=== PATIENT | female | born 1975 | race Caucasian/White ===

== ENCOUNTER 2016-04-29 11:31 | Emergency (ER) | payer OTHER, SELFPAY ==
[~2016-04-29 11:31] MED LIST: /AMIT100TA PO; /CIPR75TA OR; /ESOM40CA OR; /ONDA4TA OR; ACET500C OR; ACET65TA OR; BENT20TA OR; CALC500T21 PO; CIPR500T4 OR; CIPR500T89 PO; COLA100C2 OR; COLA100C2 PO; DEPRO PROVERA SC; FLAG500T OR; FLAG500T PO; FLEX10TA2 PO; LYRI75CA PO; MAXA5TAB10 PO; NAPR500T2 PO; OMEP40CA2 PO; ROBA500T PO; TOPA50TA PO; ULTR50TA PO; VALI5TAB PO; VICO5TAB OR; VICO5TAB PO; VITA200015 PO; VOLT1GEL2 TD; [UNRECOGNIZED DRUG - OTHER] PO; dulcolax PO; invanz IV; metamucil PO; motrin PO; multivitamin PO; oxycodone PO; vicodin PO; voltaren TOP
--- NOTE | 2016-04-29 13:21 | REP ---
Clinical: Left lower quadrant pain. Comparison: 07/16/2015. Findings: Lung bases clear. Visualized heart and pericardium normal. Liver, spleen, pancreas, bilateral adrenal glands and kidneys are relatively normal for noncontrast evaluation. 2 mm nonobstructing left renal calculus identified without perinephric stranding or hydroureteronephrosis. Prior cholecystectomy. The enteric system is without obstruction or acute inflammatory process evidence for prior partial sigmoid resection and anastomoses. No evidence for acute diverticulitis. Pelvis demonstrates normal bladder and evidence for prior hysterectomy. No pelvic fluid/ascites. No adenopathy. No mass lesion. Abdominal aorta without aneurysm. Musculoskeletal structures intact. Impression: No acute intra-abdominal or pelvic pathology appreciated. 2 mm nonobstructing left nephrolith. Signed by James Cordero MD 04/29/2016 01:12 P
[2016-04-29 13:37] LABS: BASO # 0.1 K/mm3 (0.0-0.2); BASO % 1.3 % (0.0-1.0); EOS # 0.2 K/mm3 (0.0-0.50); EOS % 2.9 % (0.0-3.0); LARGE UNSTAINED CELL # 0.1 K/mm3 (0.0-0.4); LARGE UNSTAINED CELL % 1.6 % (0.0-4.0); LYMPH % 33.7 % (24.0-44.0); MEAN CORPUSCULAR HEMOGLOBIN 30.6 pg (27.0-33.0); MEAN CORPUSCULAR HGB CONC 33.4 g/dl (32.0-36.5); MEAN CORPUSCULAR VOLUME 91.4 fl (80.0-96.0); MONO # 0.3 K/mm3 (0.0-0.8); MONO % 4.7 % (0.0-5.0); NEUTROPHILS # 3.2 K/mm3 (1.8-7.7); NEUTROPHILS % 55.8 % (36.0-66.0); PLATELET COUNT, AUTOMATED 330 k/mm3 (150-450); RED CELL DISTRIBUTION WIDTH 12.1 % (11.5-14.5); WHITE BLOOD COUNT 5.7 K/mm3 (4.0-10.0)
[2016-04-29 13:46] LABS: ALBUMIN 4.2 GM/DL (3.2-5.2); ALBUMIN/GLOBULIN RATIO 1.17 (1.00-1.93); ALKALINE PHOSPHATASE 103 U/L (45-117); ALT/SGPT 21 U/L (12-78); AMYLASE 42 U/L (25-115); ANION GAP 10 MEQ/L (8-16); AST/SGOT 15 U/L (15-37); BILIRUBIN,DIRECT 0.2 MG/DL (0.0-0.2); BILIRUBIN,TOTAL 0.7 MG/DL (0.2-1.0); BLOOD UREA NITROGEN 17 MG/DL (7-18); CALCIUM LEVEL 9.2 MG/DL (8.5-10.1); CARBON DIOXIDE LEVEL 24 MEQ/L (21-32); CHLORIDE LEVEL 108 MEQ/L (98-107); CREATININE FOR GFR 1.05 MG/DL (0.55-1.02); GLOMERULAR FILTRATION RATE > 60.0 (>58); GLUCOSE, FASTING 95 MG/DL (70-105); POTASSIUM SERUM 3.8 MEQ/L (3.5-5.1); SODIUM LEVEL 142 MEQ/L (136-145); TOTAL PROTEIN 7.8 GM/DL (6.4-8.2)
--- NOTE | 2016-04-29 14:57 | EDDOCDS ---
Nurse's Notes [facility] Name: Shalonda Rasmussen Age: 41 yrs Sex: Female : 1975 Arrival Date: 04/29/2016 Time: 11:31 Bed TR1 Private MD: Urbano Currie MBBS Diagnosis: Left lower quadrant abdominal tenderness Presentation: 04/29 11:37 Presenting complaint: Patient states: woke up with fever and stomach cramps- temp 104. srm no urinary difficulties. sometimes when eats nausea and diarrhea. diarrhea for a week. Risk factors: the patient reports no vaginal bleeding. Adult Sepsis Screening: The patient does not have new or worsening altered mentation. Patient's respiratory rate is less than 22. Systolic blood pressure is greater than 100. Patient has a qSOFA score of 0- Negative Sepsis Screen. Suicide/Homicide risk assessment- the patient denies having any suicidal and/or homicidal ideations and does not present with any other emotional, behavioral or mental health complaints. Status: Patient is not a insurance customer service specialist or dependent. Transition of care: patient was not received from another setting of care. 11:37 Acuity: MANDIE Level 3 srm 11:37 Method Of Arrival: Walkin/Carried/Asstd srm Triage Assessment: 11:40 General: Appears in no apparent distress, Behavior is appropriate for age, cooperative. srm Pain: Pain currently is 7 out of 10 on a pain scale. HIV screening NA for this visit Offered previously. GI: Reports cramping, diarrhea, nausea. MANAGER TRANSITION: 11:40 LMP N/A - Hysterectomy srm Historical: - Allergies: no known allergies; - Home Meds: 1. Topamax 50 mg oral tab nightly 2. amitriptyline 100 mg oral tab nightly 3. omeprazole 40 mg Oral cpDR 1 cap 2 times per day 4. Colace 100 mg oral cap 1 cap up to 4 times a day prn 5. Maxalt 10 mg oral tab 1 tab as needed 6. naproxen 500 mg Oral TbEC 1 tab 2 times per day prn (Last dose: 04/29/2016 07:30) 7. Vitamin D Oral 50,000 unit weekly - PMHx: Colitis; Diverticulitis; GERD; Migraine Headaches; - PSHx: Colon Resection; Hysterectomy; Cholecystectomy; Hernia repair; mesh implant to umbilicus; Oophorectomy- bilateral; - Social history: Smoking status: Patient states was never smoker of tobacco. No barriers to communication noted, The patient speaks fluent Japanese, Speaks appropriately for age. - Family history: Not pertinent. - : The pt / caregiver states he / she is not on anticoagulants. Home medication list is obtained from the patient. - Exposure Risk Screening:: None identified. Screenin:55 Screening information is obtained from the patient. Fall risk: No risks identified. bcj Assistance ADL's: requires no assistance with activities of daily living. Abuse/DV Screen: The patient / caregiver reports he/she is: not in a situation that causes fear, pain or injury. Nutritional screening: No deficits noted. Advance Directives: Currently, there is no health care proxy. home support is adequate. Assessment: 14:55 General: Appears in no apparent distress, comfortable, Behavior is cooperative. GI: bcj Abdomen is flat, non- distended Bowel sounds present X 4 quads. Abd is soft and non tender X 4 quads. Vital Signs: 11:33 BP 121 / 84; Pulse 70; Resp 19; Temp 96.6; Pulse Ox 100% ; Weight 92.08 kg; Height 5 jlm ft. 5 in. (165.10 cm); Pain 7/10; 11:33 Body Mass Index 33.78 (92.08 kg, 165.10 cm) [facility] Vitals: 11:33 Log In Time: April 29, 2016 at 11:33. [facility] ED Course: 11:32 Patient visited by Roxi Arredondo, Demand Manager. [facility] 11:32 Urbano Currie is Private Physician. [facility] 11:32 Patient moved to Waiting jl 11:36 Patient moved to Pre RCE jlm 11:38 Triage Initiated srm 12:05 Patient moved to Triage 1 srm 12:47 Edwin Chen PA is PHCP. btw 12:47 Kateryna Wheeler MD is Attending Physician. btw 12:47 Patient visited by Edwin Chen PA. btw 13:[address] je3 13:08 Patient moved to Triage 1 srm 13:17 Patient moved to TR1 bcj 13:17 Basic Metabolic Profile Sent. sew 13:17 Lipase Sent. sew 13:17 Liver Profile Sent. sew 13:19 Patient visited by Ashley Lange. sew 13:19 Labs drawn. (by ED staff). Sent per order to lab. Urine collected. Clean catch sew specimen. Urine specimen sent to lab. 13:38 AMYLASE Sent. sew 13:53 CT ABD & PELVIS W/O CONTRAST Returned. EDMS 13:55 Urbano Currie is Referral Physician. btw 13:59 [facility] Payment Agreement was scanned into [employer] and attached to record. lg 13:59 Patient moved to PR1 / 25 btw 14:37 Patient moved to TR1 [facility] 14:55 No apparent distress. Resting quietly. Awaiting disposition. bcj 14:55 The patient / caregiver is instructed regarding the plan of care and ED course. bcj 14:55 No IV's were initiated during this patient's visit. No procedures done that require bcj assistance. 14:57 Patient visited by Alessandro Moore RN. bcj Order Results: Lab Order: Basic Metabolic Profile; SPEC'M 04/29/16 13:17 Test: GLUCOSE, FASTING; Value: 95; Range: 70-105; Units: MG/DL; Status: F Test: BLOOD UREA NITROGEN; Value: 17; Range: 7-18; Units: MG/DL; Status: F Test: CREATININE FOR GFR; Value: 1.05; Range: 0.55-1.02; Abnormal: Above high normal; Units: MG/DL; Status: F Test: GLOMERULAR FILTRATION RATE; Value: > 60.0; Range: >58; Status: F Test: SODIUM LEVEL; Value: 142; Range: 136-145; Units: MEQ/L; Status: F Test: POTASSIUM SERUM; Value: 3.8; Range: 3.5-5.1; Units: MEQ/L; Status: F Test: CHLORIDE LEVEL; Value: 108; Range: 98-107; Abnormal: Above high normal; Units: MEQ/L; Status: F Test: CARBON DIOXIDE LEVEL; Value: 24; Range: 21-32; Units: MEQ/L; Status: F Test: ANION GAP; Value: 10; Range: 8-16; Units: MEQ/L; Status: F Test: CALCIUM LEVEL; Value: 9.2; Range: 8.5-10.1; Units: MG/DL; Status: F Test Note: ; Units are mL/min/1.73 m2 Chronic Kidney Disease Staging per NKF: Stage I & II GFR >=60 Normal to Mildly Decreased Stage III GFR 30-59 Moderately Decreased Stage IV GFR 15-29 Severely Decreased Stage V GFR <15 Very Little GFR Left ESRD GFR <15 on BIOLOGY TUTOR Lab Order: Lipase; [facility] 04/29/16 13:17 Test: LIPASE; Value: 105; Range: 73-393; Units: U/L; Status: F Lab Order: Liver Profile; [facility] 04/29/16 13:17 Test: AST/SGOT; Value: 15; Range: 15-37; Units: U/L; Status: F Test: ALT/SGPT; Value: 21; Range: 12-78; Units: U/L; Status: F Test: ALKALINE PHOSPHATASE; Value: 103; Range: 45-117; Units: U/L; Status: F Test: BILIRUBIN,TOTAL; Value: 0.7; Range: 0.2-1.0; Units: MG/DL; Status: F Test: BILIRUBIN,DIRECT; Value: 0.2; Range: 0.0-0.2; Units: MG/DL; Status: F Test: TOTAL PROTEIN; Value: 7.8; Range: 6.4-8.2; Units: GM/DL; Status: F Test: ALBUMIN; Value: 4.2; Range: 3.2-5.2; Units: GM/DL; Status: F Test: ALBUMIN/GLOBULIN RATIO; Value: 1.17; Range: 1.00-1.93; Status: F Lab Order: CBC WITH DIFFERENTIAL; [facility] 04/29/16 13:17 Test: WHITE BLOOD COUNT; Value: 5.7; Range: 4.0-10.0; Units: K/mm3; Status: F Test: RED BLOOD COUNT; Value: 4.86; Range: 4.00-5.40; Units: M/mm3; Status: F Test: HEMOGLOBIN; Value: 14.9; Range: 12.0-16.0; Units: g/dl; Status: F Test: HEMATOCRIT; Value: 44.5; Range: 36.0-47.0; Units: %; Status: F Test: MEAN CORPUSCULAR VOLUME; Value: 91.4; Range: 80.0-96.0; Units: fl; Status: F Test: MEAN CORPUSCULAR HEMOGLOBIN; Value: 30.6; Range: 27.0-33.0; Units: pg; Status: F Test: MEAN CORPUSCULAR HGB CONC; Value: 33.4; Range: 32.0-36.5; Units: g/dl; Status: F Test: RED CELL DISTRIBUTION WIDTH; Value: 12.1; Range: 11.5-14.5; Units: %; Status: F Test: PLATELET COUNT, AUTOMATED; Value: 330; Range: 150-450; Units: k/mm3; Status: F Test: NEUTROPHILS %; Value: 55.8; Range: 36.0-66.0; Units: %; Status: F Test: LYMPH %; Value: 33.7; Range: 24.0-44.0; Units: %; Status: F Test: MONO %; Value: 4.7; Range: 0.0-5.0; Units: %; Status: F Test: EOS %; Value: 2.9; Range: 0.0-3.0; Units: %; Status: F Test: BASO %; Value: 1.3; Range: 0.0-1.0; Abnormal: Above high normal; Units: %; Status: F Test: LARGE UNSTAINED CELL %; Value: 1.6; Range: 0.0-4.0; Units: %; Status: F Test: NEUTROPHILS #; Value: 3.2; Range: 1.8-7.7; Units: K/mm3; Status: F Test: LYMPH #; Value: 2.0; Range: 1.5-4.5; Units: K/mm3; Status: F Test: MONO #; Value: 0.3; Range: 0.0-0.8; Units: K/mm3; Status: F Test: EOS #; Value: 0.2; Range: 0.0-0.50; Units: K/mm3; Status: F Test: BASO #; Value: 0.1; Range: 0.0-0.2; Units: K/mm3; Status: F Test: LARGE UNSTAINED CELL #; Value: 0.1; Range: 0.0-0.4; Units: K/mm3; Status: F Lab Order: URINALYSIS; SPEC'M 04/29/16 13:17 Test: APPEARANCE, URINE; Value: HAZY; Range: CLEAR; Status: F Test: COLOR, URINE; Value: YELLOW; Range: YELLOW; Status: F Test: PH,URINE; Value: 5.0; Range: 5.0-9.0; Units: UNITS; Status: F Test: SPECIFIC GRAVITY URINE AUTO; Value: 1.021; Range: 1.002-1.035; Status: F Test: PROTEIN, URINE AUTO; Value: NEGATIVE; Range: NEGATIVE; Units: mg/dL; Status: F Test: GLUCOSE, URINE (UA) AUTO; Value: NEGATIVE; Range: NEGATIVE; Units: mg/dL; Status: F Test: KETONE, URINE AUTO; Value: NEGATIVE; Range: NEGATIVE; Units: mg/dL; Status: F Test: UROBILINOGEN, URINE AUTO; Value: 0.2; Range: 0.0-2.0; Units: mg/dL; Status: F Test: BILIRUBIN, URINE AUTO; Value: NEGATIVE; Range: NEGATIVE; Status: F Test: NITRITE, URINE AUTO; Value: NEGATIVE; Range: NEGATIVE; Status: F Test: LEUKOCYTE ESTERASE, URINE AUTO; Value: NEGATIVE; Range: NEGATIVE; Status: F Test: BLOOD, URINE BLOOD; Value: NEGATIVE; Range: NEGATIVE; Status: F Test: WBC, URINE AUTO; Value: 2; Range: 0-3; Units: /HPF; Status: F Test: RBC, URINE AUTO; Value: 2; Range: 0-3; Units: /HPF; Status: F Test: BACTERIA, URINE AUTO; Value: 1+; Range: NEGATIVE; Abnormal: Above high normal; Status: F Test: SQUAMOUS EPITHELIAL CELL UR AU; Value: 4; Range: 0-6; Units: /HPF; Status: F Test: MUCUS, URINE; Value: LARGE; Range: NEGATIVE; Status: F Test: HYALINE CAST, URINE AUTO; Value: 0; Range: 0-1; Units: /LPF; Status: F Lab Order: AMYLASE; SPEC'M 04/29/16 13:17 Test: AMYLASE; Value: 42; Range: 25-115; Units: U/L; Status: F Radiology Order: CT ABD & PELVIS W/O CONTRAST Test: CT ABD & PELVIS W/O CONTRAST REASON FOR EXAMINATION: DIVERTICULITIS/LLQ PAIN; Clinical: Left lower quadrant pain.; ; Comparison: 07/16/2015.; ; Findings:; Lung bases clear. Visualized heart and pericardium normal.; ; Liver, spleen, pancreas, bilateral adrenal glands and kidneys are relatively; normal for noncontrast evaluation. 2 mm nonobstructing left renal calculus; identified without perinephric stranding or hydroureteronephrosis. Prior; cholecystectomy. The enteric system is without obstruction or acute inflammatory; process evidence for prior partial sigmoid resection and anastomoses. No; evidence for acute diverticulitis. Pelvis demonstrates normal bladder and; evidence for prior hysterectomy. No pelvic fluid/ascites. No adenopathy. No; mass lesion. Abdominal aorta without aneurysm. Musculoskeletal structures; intact.; ; Impression:; No acute intra-abdominal or pelvic pathology appreciated.; 2 mm nonobstructing left nephrolith.; ; ; Signed by; James Cordero MD 04/29/2016 01:12 P; Outcome: 13:56 Discharge ordered by Provider. btw 14:56 Patient left the ED. [facility] Signatures: Dispatcher [employer] Alessandro Antoine, Andreina Hill RN, RN RN Samson Jackson, Reg Reg lg Japanese, Edwin Francisco PA PA w Samantha Elmore,RN RN jean Lange, Roxi Smyth, Demand Manager Unit [facility] Corrections: (The following items were deleted from the chart) 13:09 13:07 AMYLASE sent. sew EDMS 13:32 13:29 URINE CULTURE sent. sew EDMS 13:34 13:29 AMYLASE sent. sew EDMS 13:34 13:29 CBC WITH DIFFERENTIAL sent. sew EDMS 13:34 13:29 URINALYSIS sent. [facility] [place] EDMS MTDD
--- NOTE | 2016-04-29 14:57 | EDDOCDS ---
Physician Documentation [facility] Name: Shalonda Rasmussen Age: 41 yrs Sex: Female : 1975 Arrival Date: 04/29/2016 Time: 11:31 Bed TR1 Private MD: Urbano Currie MBBS Disposition: 04/29/16 13:56 Discharged to Home/Self Care. Impression: Left lower quadrant abdominal tenderness. - Condition is Stable. - Discharge Instructions: Abdominal Pain, Women. - Medication Reconciliation, Local Pharmacy Hours form. - Follow up: Urbano Currie; When: Call to arrange an appointment; Reason: Further diagnostic work-up, Recheck today's complaints, Continuance of care. - Problem is new. - Symptoms are unchanged. Historical: - Allergies: no known allergies; - Home Meds: 1. Topamax 50 mg oral tab nightly 2. amitriptyline 100 mg oral tab nightly 3. omeprazole 40 mg Oral cpDR 1 cap 2 times per day 4. Colace 100 mg oral cap 1 cap up to 4 times a day prn 5. Maxalt 10 mg oral tab 1 tab as needed 6. naproxen 500 mg Oral TbEC 1 tab 2 times per day prn (Last dose: 04/29/2016 07:30) 7. Vitamin D Oral 50,000 unit weekly - PMHx: Colitis; Diverticulitis; GERD; Migraine Headaches; - PSHx: Colon Resection; Hysterectomy; Cholecystectomy; Hernia repair; mesh implant to umbilicus; Oophorectomy- bilateral; - Social history: Smoking status: Patient states was never smoker of tobacco. No barriers to communication noted, The patient speaks fluent Surinamese, Speaks appropriately for age. - Family history: Not pertinent. - : The pt / caregiver states he / she is not on anticoagulants. Home medication list is obtained from the patient. - Exposure Risk Screening:: None identified. 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 5 in. (165.10 cm); Pain 7/10; 11:33 Body Mass Index 33.78 (92.08 kg, 165.10 cm) jlm MDM: 12:48 Financial registration complete. lg 13:03 CT ABD & PELVIS W/O CONTRAST Ordered. EDMS 13:03 NOTHING BY MOUTH+DIET ordered. EDMS 13:04 Basic Metabolic Profile Ordered. EDMS 13:04 Lipase Ordered. EDMS 13:04 Liver Profile Ordered. EDMS 13:34 AMYLASE Ordered. EDMS 13:53 Basic Metabolic Profile Reviewed. btw 13:53 CBC WITH DIFFERENTIAL Reviewed. btw 13:53 URINALYSIS Reviewed. btw 13:53 Lipase Reviewed. btw 13:53 Liver Profile Reviewed. btw 13:53 AMYLASE Reviewed. btw 13:53 CT ABD & PELVIS W/O CONTRAST Reviewed. btw 13:59 [facility] was scanned into [employer] and attached to record. lg Signatures: Dispatcher [employer] Alessandro Antoine RN RN bcj Michelson, Staci, RN RN srm Ganter, LoriLee, Juni Reg lg Edwin Chen PA PA btw The chart was reviewed and I authenticate all verbal orders and agree with the evaluation and treatment provided.Corrections: (The following items were deleted from the chart) 13:09 13:03 AMYLASE ordered. EDMS EDMS 13:09 13:03 BASIC METABOLIC PROFILE ordered. EDMS EDMS 13:09 13:03 LIPASE ordered. EDMS EDMS 13:09 13:04 LIVER PROFILE ordered. EDMS EDMS 13:09 13:04 CBC WITH DIFFERENTIAL+LAB ordered. EDMS EDMS 13:09 13:04 URINALYSIS+LAB ordered. EDMS EDMS 13:10 13:04 URINE CULTURE+JULIETA ordered. EDMS EDMS 13:11 13:06 CT ABD & PELVIS W/O CONTRAST+CT ordered. EDMS EDMS 13:12 13:03 CBC WITH DIFFERENTIAL ordered. EDMS EDMS 13:12 13:03 URINALYSIS ordered. EDMS EDMS 13:12 13:04 AMYLASE+LAB ordered. EDMS EDMS 13:12 13:04 URINE CULTURE ordered. EDMS EDMS 13:32 13:28 URINE CULTURE ordered. EDMS EDMS 13:34 13:27 URINALYSIS ordered. EDMS EDMS 13:34 13:28 CBC WITH DIFFERENTIAL ordered. EDMS EDMS 13:34 13:28 AMYLASE ordered. EDMS EDMS Attachments: 13:59 [facility] Payment Agreement lg MTDD
--- NOTE | 2016-05-01 15:58 | EDDOCDS ---
Physician Documentation [facility] Name: Shalonda Rasmussen Age: 41 yrs Sex: Female : 1975 Arrival Date: 04/29/2016 Time: 11:31 Bed TR1 Private MD: Urbano Currie MBBS Disposition: 04/29/16 13:56 Discharged to Home/Self Care. Impression: Left lower quadrant abdominal tenderness. - Condition is Stable. - Discharge Instructions: Abdominal Pain, Women. - Medication Reconciliation, Local Pharmacy Hours form. - Follow up: Urbano Currie; When: Call to arrange an appointment; Reason: Further diagnostic work-up, Recheck today's complaints, Continuance of care. - Problem is new. - Symptoms are unchanged. Historical: - Allergies: no known allergies; - Home Meds: 1. Topamax 50 mg oral tab nightly 2. amitriptyline 100 mg oral tab nightly 3. omeprazole 40 mg Oral cpDR 1 cap 2 times per day 4. Colace 100 mg oral cap 1 cap up to 4 times a day prn 5. Maxalt 10 mg oral tab 1 tab as needed 6. naproxen 500 mg Oral TbEC 1 tab 2 times per day prn (Last dose: 04/29/2016 07:30) 7. Vitamin D Oral 50,000 unit weekly - PMHx: Colitis; Diverticulitis; GERD; Migraine Headaches; - PSHx: Colon Resection; Hysterectomy; Cholecystectomy; Hernia repair; mesh implant to umbilicus; Oophorectomy- bilateral; - Social history: Smoking status: Patient states was never smoker of tobacco. No barriers to communication noted, The patient speaks fluent Czech, Speaks appropriately for age. - Family history: Not pertinent. - : The pt / caregiver states he / she is not on anticoagulants. Home medication list is obtained from the patient. - Exposure Risk Screening:: None identified. 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 5 in. (165.10 cm); Pain 7/10; 11:33 Body Mass Index 33.78 (92.08 kg, 165.10 cm) jlm MDM: 12:48 Financial registration complete. lg 13:03 CT ABD & PELVIS W/O CONTRAST Ordered. EDMS 13:03 NOTHING BY MOUTH+DIET ordered. EDMS 13:04 Basic Metabolic Profile Ordered. EDMS 13:04 Lipase Ordered. EDMS 13:04 Liver Profile Ordered. EDMS 13:34 AMYLASE Ordered. EDMS 13:53 Basic Metabolic Profile Reviewed. btw 13:53 CBC WITH DIFFERENTIAL Reviewed. btw 13:53 URINALYSIS Reviewed. btw 13:53 Lipase Reviewed. btw 13:53 Liver Profile Reviewed. btw 13:53 AMYLASE Reviewed. btw 13:53 CT ABD & PELVIS W/O CONTRAST Reviewed. btw 13:59 [place] [place] Payment Agreement was scanned into [employer] and attached to record. lg 21:55 T-Sheet-- Draft Copy was scanned into [employer] and attached to record. klr Signatures: Dispatcher [employer] Alessandro Antoine RN RN bcj Michelson, Staci, RN RN srm Ganter, LoriLee, Juni Reg Edwin Rogers PA PA btw Redder, Kathie klr The chart was reviewed and I authenticate all verbal orders and agree with the evaluation and treatment provided.Corrections: (The following items were deleted from the chart) 13:09 13:03 AMYLASE ordered. EDMS EDMS 13:09 13:03 BASIC METABOLIC PROFILE ordered. EDMS EDMS 13:09 13:03 LIPASE ordered. EDMS EDMS 13:09 13:04 LIVER PROFILE ordered. EDMS EDMS 13:09 13:04 CBC WITH DIFFERENTIAL+LAB ordered. EDMS EDMS 13:09 13:04 URINALYSIS+LAB ordered. EDMS EDMS 13:10 13:04 URINE CULTURE+JULIETA ordered. EDMS EDMS 13:11 13:06 CT ABD & PELVIS W/O CONTRAST+CT ordered. EDMS EDMS 13:12 13:03 CBC WITH DIFFERENTIAL ordered. EDMS EDMS 13:12 13:03 URINALYSIS ordered. EDMS EDMS 13:12 13:04 AMYLASE+LAB ordered. EDMS EDMS 13:12 13:04 URINE CULTURE ordered. EDMS EDMS 13:32 13:28 URINE CULTURE ordered. EDMS EDMS 13:34 13:27 URINALYSIS ordered. EDMS EDMS 13:34 13:28 CBC WITH DIFFERENTIAL ordered. EDMS EDMS 34 13:28 AMYLASE ordered. EDMS EDMS Attachments: 13:59 [facility] Payment Agreement lg 21:55 T-Sheet-- Draft Copy klr Chart Complete MTDD
--- NOTE | 2016-05-01 15:58 | EDDOCDS ---
Physician Documentation [facility] Name: Shalonda Rasmussen Age: 41 yrs Sex: Female : 1975 Arrival Date: 04/29/2016 Time: 11:31 Bed TR1 Private MD: Urbano Currie MBBS Disposition: 04/29/16 13:56 Discharged to Home/Self Care. Impression: Left lower quadrant abdominal tenderness. - Condition is Stable. - Discharge Instructions: Abdominal Pain, Women. - Medication Reconciliation, Local Pharmacy Hours form. - Follow up: Urbano Currie; When: Call to arrange an appointment; Reason: Further diagnostic work-up, Recheck today's complaints, Continuance of care. - Problem is new. - Symptoms are unchanged. Historical: - Allergies: no known allergies; - Home Meds: 1. Topamax 50 mg oral tab nightly 2. amitriptyline 100 mg oral tab nightly 3. omeprazole 40 mg Oral cpDR 1 cap 2 times per day 4. Colace 100 mg oral cap 1 cap up to 4 times a day prn 5. Maxalt 10 mg oral tab 1 tab as needed 6. naproxen 500 mg Oral TbEC 1 tab 2 times per day prn (Last dose: 04/29/2016 07:30) 7. Vitamin D Oral 50,000 unit weekly - PMHx: Colitis; Diverticulitis; GERD; Migraine Headaches; - PSHx: Colon Resection; Hysterectomy; Cholecystectomy; Hernia repair; mesh implant to umbilicus; Oophorectomy- bilateral; - Social history: Smoking status: Patient states was never smoker of tobacco. No barriers to communication noted, The patient speaks fluent Monegasque, Speaks appropriately for age. - Family history: Not pertinent. - : The pt / caregiver states he / she is not on anticoagulants. Home medication list is obtained from the patient. - Exposure Risk Screening:: None identified. 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 5 in. (165.10 cm); Pain 7/10; 11:33 Body Mass Index 33.78 (92.08 kg, 165.10 cm) jlm MDM: 12:48 Financial registration complete. lg 13:03 CT ABD & PELVIS W/O CONTRAST Ordered. EDMS 13:03 NOTHING BY MOUTH+DIET ordered. EDMS 13:04 Basic Metabolic Profile Ordered. EDMS 13:04 Lipase Ordered. EDMS 13:04 Liver Profile Ordered. EDMS 13:34 AMYLASE Ordered. EDMS 13:53 Basic Metabolic Profile Reviewed. btw 13:53 CBC WITH DIFFERENTIAL Reviewed. btw 13:53 URINALYSIS Reviewed. btw 13:53 Lipase Reviewed. btw 13:53 Liver Profile Reviewed. btw 13:53 AMYLASE Reviewed. btw 13:53 CT ABD & PELVIS W/O CONTRAST Reviewed. btw 13:59 [facility] [place] Payment Agreement was scanned into [employer] and attached to record. lg 21:55 T-Sheet-- Draft Copy was scanned into [employer] and attached to record. klr Signatures: Dispatcher [employer] Alessandro Antoine RN RN bcj Michelson, Staci, RN RN srm Ganter, LoriLee, Juni Reg Edwin Rogers PA PA btw Redder, Kathie klr The chart was reviewed and I authenticate all verbal orders and agree with the evaluation and treatment provided.Corrections: (The following items were deleted from the chart) 13:09 13:03 AMYLASE ordered. EDMS EDMS 13:09 13:03 BASIC METABOLIC PROFILE ordered. EDMS EDMS 13:09 13:03 LIPASE ordered. EDMS EDMS 13:09 13:04 LIVER PROFILE ordered. EDMS EDMS 13:09 13:04 CBC WITH DIFFERENTIAL+LAB ordered. EDMS EDMS 13:09 13:04 URINALYSIS+LAB ordered. EDMS EDMS 13:10 13:04 URINE CULTURE+JULIETA ordered. EDMS EDMS 13:11 13:06 CT ABD & PELVIS W/O CONTRAST+CT ordered. EDMS EDMS 13:12 13:03 CBC WITH DIFFERENTIAL ordered. EDMS EDMS 13:12 13:03 URINALYSIS ordered. EDMS EDMS 13:12 13:04 AMYLASE+LAB ordered. EDMS EDMS 13:12 13:04 URINE CULTURE ordered. EDMS EDMS 13:32 13:28 URINE CULTURE ordered. EDMS EDMS 13:34 13:27 URINALYSIS ordered. EDMS EDMS 13:34 13:28 CBC WITH DIFFERENTIAL ordered. EDMS EDMS 34 13:28 AMYLASE ordered. EDMS EDMS Attachments: 13:59 [facility] Payment Agreement lg 21:55 T-Sheet-- Draft Copy klr Chart Complete MTDD
--- NOTE | 2016-05-01 15:58 | EDDOCDS ---
Nurse's Notes [facility] Name: Shalonda Rasmussen Age: 41 yrs Sex: Female : 1975 Arrival Date: 04/29/2016 Time: 11:31 Bed TR1 Private MD: Urbano Currie MBBS Diagnosis: Left lower quadrant abdominal tenderness Presentation: 04/29 11:37 Presenting complaint: Patient states: woke up with fever and stomach cramps- temp 104. srm no urinary difficulties. sometimes when eats nausea and diarrhea. diarrhea for a week. Risk factors: the patient reports no vaginal bleeding. Adult Sepsis Screening: The patient does not have new or worsening altered mentation. Patient's respiratory rate is less than 22. Systolic blood pressure is greater than 100. Patient has a qSOFA score of 0- Negative Sepsis Screen. Suicide/Homicide risk assessment- the patient denies having any suicidal and/or homicidal ideations and does not present with any other emotional, behavioral or mental health complaints. 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 Transition of care: patient was not received from another setting of care. 11:37 Acuity: MANDIE Level 3 srm 11:37 Method Of Arrival: Walkin/Carried/Asstd srm Triage Assessment: 11:40 General: Appears in no apparent distress, Behavior is appropriate for age, cooperative. srm Pain: Pain currently is 7 out of 10 on a pain scale. HIV screening NA for this visit Offered previously. GI: Reports cramping, diarrhea, nausea. 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 Topamax 50 mg oral tab nightly 2. amitriptyline 100 mg oral tab nightly 3. omeprazole 40 mg Oral cpDR 1 cap 2 times per day 4. Colace 100 mg oral cap 1 cap up to 4 times a day prn 5. Maxalt 10 mg oral tab 1 tab as needed 6. naproxen 500 mg Oral TbEC 1 tab 2 times per day prn (Last dose: 04/29/2016 07:30) 7. Vitamin D Oral 50,000 unit weekly - PMHx: Colitis; Diverticulitis; GERD; Migraine Headaches; - PSHx: Colon Resection; Hysterectomy; Cholecystectomy; Hernia repair; mesh implant to umbilicus; Oophorectomy- bilateral; - Social history: Smoking status: Patient states was never smoker of tobacco. No barriers to communication noted, The patient speaks fluent Kinyarwanda, Speaks appropriately for age. - Family history: Not pertinent. - : The pt / caregiver states he / she is not on anticoagulants. Home medication list is obtained from the patient. - Exposure Risk Screening:: None identified. Screenin:55 Screening information is obtained from the patient. Fall risk: No risks identified. bcj Assistance ADL's: requires no assistance with activities of daily living. Abuse/DV Screen: The patient / caregiver reports he/she is: not in a situation that causes fear, pain or injury. Nutritional screening: No deficits noted. Advance Directives: Currently, there is no health care proxy. home support is adequate. Assessment: 14:55 General: Appears in no apparent distress, comfortable, Behavior is cooperative. GI: bcj Abdomen is flat, non- distended Bowel sounds present X 4 quads. Abd is soft and non tender X 4 quads. Vital Signs: 11:33 BP 121 / 84; Pulse 70; Resp 19; Temp 96.6; Pulse Ox 100% ; Weight 92.08 kg; Height 5 jlm ft. 5 in. (165.10 cm); Pain 7/10; 11:33 Body Mass Index 33.78 (92.08 kg, 165.10 cm) [facility] Vitals: 11:33 Log In Time: April 29, 2016 at 11:33. [facility] ED Course: 11:32 Patient visited by Roxi Arredondo, Shank Carrier. [facility] 11:32 Urbano Currie is Private Physician. [facility] 11:32 Patient moved to Waiting jl 11:36 Patient moved to Pre RCE jlm 11:38 Triage Initiated srm 12:05 Patient moved to Triage 1 srm 12:47 Edwin Chen PA is PHCP. btw 12:47 Kateryna Wheeler MD is Attending Physician. btw 12:47 Patient visited by Edwin Chen PA. btw 13:[address] je3 13:08 Patient moved to Triage 1 srm 13:17 Patient moved to TR1 bcj 13:17 Basic Metabolic Profile Sent. sew 13:17 Lipase Sent. sew 13:17 Liver Profile Sent. sew 13:19 Patient visited by Ashley Lange. sew 13:19 Labs drawn. (by ED staff). Sent per order to lab. Urine collected. Clean catch sew specimen. Urine specimen sent to lab. 13:38 AMYLASE Sent. sew 13:53 CT ABD & PELVIS W/O CONTRAST Returned. EDMS 13:55 Urbano Currie is Referral Physician. btw 13:59 [facility] Payment Agreement was scanned into [employer] and attached to record. lg 13:59 Patient moved to PR1 / 25 btw 14:37 Patient moved to TR1 [facility] 14:55 No apparent distress. Resting quietly. Awaiting disposition. j 14:55 The patient / caregiver is instructed regarding the plan of care and ED course. j 14:55 No IV's were initiated during this patient's visit. No procedures done that require j assistance. 14:57 Patient visited by Alessandro Moore RN. [facility] 21:55 T-Sheet-- Draft Copy was scanned into [employer] and attached to record. klr Order Results: Lab Order: Basic Metabolic Profile; SPEC'M 04/29/16 13:17 Test: GLUCOSE, FASTING; Value: 95; Range: 70-105; Units: MG/DL; Status: F Test: BLOOD UREA NITROGEN; Value: 17; Range: 7-18; Units: MG/DL; Status: F Test: CREATININE FOR GFR; Value: 1.05; Range: 0.55-1.02; Abnormal: Above high normal; Units: MG/DL; Status: F Test: GLOMERULAR FILTRATION RATE; Value: > 60.0; Range: >58; Status: F Test: SODIUM LEVEL; Value: 142; Range: 136-145; Units: MEQ/L; Status: F Test: POTASSIUM SERUM; Value: 3.8; Range: 3.5-5.1; Units: MEQ/L; Status: F Test: CHLORIDE LEVEL; Value: 108; Range: 98-107; Abnormal: Above high normal; Units: MEQ/L; Status: F Test: CARBON DIOXIDE LEVEL; Value: 24; Range: 21-32; Units: MEQ/L; Status: F Test: ANION GAP; Value: 10; Range: 8-16; Units: MEQ/L; Status: F Test: CALCIUM LEVEL; Value: 9.2; Range: 8.5-10.1; Units: MG/DL; Status: F Test Note: ; Units are mL/min/1.73 m2 Chronic Kidney Disease Staging per NKF: Stage I & II GFR >=60 Normal to Mildly Decreased Stage III GFR 30-59 Moderately Decreased Stage IV GFR 15-29 Severely Decreased Stage V GFR <15 Very Little GFR Left ESRD GFR <15 on DIRECTOR LOSS PREVENTION Lab Order: Lipase; SPEC'M 04/29/16 13:17 Test: LIPASE; Value: 105; Range: 73-393; Units: U/L; Status: F Lab Order: Liver Profile; SPEC'M 04/29/16 13:17 Test: AST/SGOT; Value: 15; Range: 15-37; Units: U/L; Status: F Test: ALT/SGPT; Value: 21; Range: 12-78; Units: U/L; Status: F Test: ALKALINE PHOSPHATASE; Value: 103; Range: 45-117; Units: U/L; Status: F Test: BILIRUBIN,TOTAL; Value: 0.7; Range: 0.2-1.0; Units: MG/DL; Status: F Test: BILIRUBIN,DIRECT; Value: 0.2; Range: 0.0-0.2; Units: MG/DL; Status: F Test: TOTAL PROTEIN; Value: 7.8; Range: 6.4-8.2; Units: GM/DL; Status: F Test: ALBUMIN; Value: 4.2; Range: 3.2-5.2; Units: GM/DL; Status: F Test: ALBUMIN/GLOBULIN RATIO; Value: 1.17; Range: 1.00-1.93; Status: F Lab Order: Urine Culture; [facility]'M 04/29/16 13:17 Test: URINE CULTURE; Value: ; Status: F Test: URINE CULTURE; Value: * This is a corrected result. *; Status: F Test: URINE CULTURE; Value: ; Status: F Test: URINE CULTURE; Value: A prior result that was reported as final has been changed.; Status: F Test: URINE CULTURE; Value: <EXTERNAL COMMENT eCWMed> FULL REPORT IN LAB NOTES (eCW and Medent).; Status: F Test: URINE CULTURE; Value: URINE CULTURE RESULT NO GROWTH; Status: F Lab Order: CBC WITH DIFFERENTIAL; SPEC'M 04/29/16 13:17 Test: WHITE BLOOD COUNT; Value: 5.7; Range: 4.0-10.0; Units: K/mm3; Status: F Test: RED BLOOD COUNT; Value: 4.86; Range: 4.00-5.40; Units: M/mm3; Status: F Test: HEMOGLOBIN; Value: 14.9; Range: 12.0-16.0; Units: g/dl; Status: F Test: HEMATOCRIT; Value: 44.5; Range: 36.0-47.0; Units: %; Status: F Test: MEAN CORPUSCULAR VOLUME; Value: 91.4; Range: 80.0-96.0; Units: fl; Status: F Test: MEAN CORPUSCULAR HEMOGLOBIN; Value: 30.6; Range: 27.0-33.0; Units: pg; Status: F Test: MEAN CORPUSCULAR HGB CONC; Value: 33.4; Range: 32.0-36.5; Units: g/dl; Status: F Test: RED CELL DISTRIBUTION WIDTH; Value: 12.1; Range: 11.5-14.5; Units: %; Status: F Test: PLATELET COUNT, AUTOMATED; Value: 330; Range: 150-450; Units: k/mm3; Status: F Test: NEUTROPHILS %; Value: 55.8; Range: 36.0-66.0; Units: %; Status: F Test: LYMPH %; Value: 33.7; Range: 24.0-44.0; Units: %; Status: F Test: MONO %; Value: 4.7; Range: 0.0-5.0; Units: %; Status: F Test: EOS %; Value: 2.9; Range: 0.0-3.0; Units: %; Status: F Test: BASO %; Value: 1.3; Range: 0.0-1.0; Abnormal: Above high normal; Units: %; Status: F Test: LARGE UNSTAINED CELL %; Value: 1.6; Range: 0.0-4.0; Units: %; Status: F Test: NEUTROPHILS #; Value: 3.2; Range: 1.8-7.7; Units: K/mm3; Status: F Test: LYMPH #; Value: 2.0; Range: 1.5-4.5; Units: K/mm3; Status: F Test: MONO #; Value: 0.3; Range: 0.0-0.8; Units: K/mm3; Status: F Test: EOS #; Value: 0.2; Range: 0.0-0.50; Units: K/mm3; Status: F Test: BASO #; Value: 0.1; Range: 0.0-0.2; Units: K/mm3; Status: F Test: LARGE UNSTAINED CELL #; Value: 0.1; Range: 0.0-0.4; Units: K/mm3; Status: F Lab Order: URINALYSIS; SPEC'M 04/29/16 13:17 Test: APPEARANCE, URINE; Value: HAZY; Range: CLEAR; Status: F Test: COLOR, URINE; Value: YELLOW; Range: YELLOW; Status: F Test: PH,URINE; Value: 5.0; Range: 5.0-9.0; Units: UNITS; Status: F Test: SPECIFIC GRAVITY URINE AUTO; Value: 1.021; Range: 1.002-1.035; Status: F Test: PROTEIN, URINE AUTO; Value: NEGATIVE; Range: NEGATIVE; Units: mg/dL; Status: F Test: GLUCOSE, URINE (UA) AUTO; Value: NEGATIVE; Range: NEGATIVE; Units: mg/dL; Status: F Test: KETONE, URINE AUTO; Value: NEGATIVE; Range: NEGATIVE; Units: mg/dL; Status: F Test: UROBILINOGEN, URINE AUTO; Value: 0.2; Range: 0.0-2.0; Units: mg/dL; Status: F Test: BILIRUBIN, URINE AUTO; Value: NEGATIVE; Range: NEGATIVE; Status: F Test: NITRITE, URINE AUTO; Value: NEGATIVE; Range: NEGATIVE; Status: F Test: LEUKOCYTE ESTERASE, URINE AUTO; Value: NEGATIVE; Range: NEGATIVE; Status: F Test: BLOOD, URINE BLOOD; Value: NEGATIVE; Range: NEGATIVE; Status: F Test: WBC, URINE AUTO; Value: 2; Range: 0-3; Units: /HPF; Status: F Test: RBC, URINE AUTO; Value: 2; Range: 0-3; Units: /HPF; Status: F Test: BACTERIA, URINE AUTO; Value: 1+; Range: NEGATIVE; Abnormal: Above high normal; Status: F Test: SQUAMOUS EPITHELIAL CELL UR AU; Value: 4; Range: 0-6; Units: /HPF; Status: F Test: MUCUS, URINE; Value: LARGE; Range: NEGATIVE; Status: F Test: HYALINE CAST, URINE AUTO; Value: 0; Range: 0-1; Units: /LPF; Status: F Lab Order: AMYLASE; SPEC'M 04/29/16 13:17 Test: AMYLASE; Value: 42; Range: 25-115; Units: U/L; Status: F Radiology Order: CT ABD & PELVIS W/O CONTRAST Test: CT ABD & PELVIS W/O CONTRAST REASON FOR EXAMINATION: DIVERTICULITIS/LLQ PAIN; Clinical: Left lower quadrant pain.; ; Comparison: 07/16/2015.; ; Findings:; Lung bases clear. Visualized heart and pericardium normal.; ; Liver, spleen, pancreas, bilateral adrenal glands and kidneys are relatively; normal for noncontrast evaluation. 2 mm nonobstructing left renal calculus; identified without perinephric stranding or hydroureteronephrosis. Prior; cholecystectomy. The enteric system is without obstruction or acute inflammatory; process evidence for prior partial sigmoid resection and anastomoses. No; evidence for acute diverticulitis. Pelvis demonstrates normal bladder and; evidence for prior hysterectomy. No pelvic fluid/ascites. No adenopathy. No; mass lesion. Abdominal aorta without aneurysm. Musculoskeletal structures; intact.; ; Impression:; No acute intra-abdominal or pelvic pathology appreciated.; 2 mm nonobstructing left nephrolith.; ; ; Signed by; James Cordero MD 04/29/2016 01:12 P; Outcome: 13:56 Discharge ordered by Provider. btw 14:56 Patient left the ED. [facility] Signatures: Dispatcher [employer] Alessandro Antoine RN RN bcj Michelson, Staci, RN RN Samson Jackson, Juni Reg Doyle Logan Brandon, PA PA btw Samantha Elmore RN RN alonzo Lange, Roxi Smyth Shank Carrier Unit Camille Valentin Corrections: (The following items were deleted from the chart) 13: 13:07 AMYLASE sent. sew EDMS 13:32 13:29 URINE CULTURE sent. sew EDMS 13:29 AMYLASE sent. [facility] EDMS 13:29 CBC WITH DIFFERENTIAL sent. [facility] EDMS 13:29 URINALYSIS sent. [facility] EDMS Chart Complete MTDD
== END 2016-04-29 14:56 | disposition home or self-care (01) ==
LOC: M ED 11:31
DX: R10.32 Left lower quadrant pain (principal); K57.92 Diverticulitis of intestine, part unspecified, without perforation or abscess without bleeding; K21.9 Gastro-esophageal reflux disease without esophagitis; G43.909 Migraine, unspecified, not intractable, without status migrainosus; Z79.899 Other long term (current) drug therapy

== ENCOUNTER → 2016-05-16 | Outpatient (REF) | payer OTHER ==
[2016-05-16 13:07] LABS: ALBUMIN 4.1 GM/DL (3.2-5.2); ALBUMIN/GLOBULIN RATIO 1.46 (1.00-1.93); ALKALINE PHOSPHATASE 86 U/L (45-117); ALT/SGPT 16 U/L (12-78); ANION GAP 9 MEQ/L (8-16); AST/SGOT 12 U/L (15-37); BILIRUBIN,TOTAL 0.6 MG/DL (0.2-1.0); BLOOD UREA NITROGEN 16 MG/DL (7-18); CALCIUM LEVEL 8.5 MG/DL (8.5-10.1); CARBON DIOXIDE LEVEL 26 MEQ/L (21-32); CHLORIDE LEVEL 108 MEQ/L (98-107); CREATININE FOR GFR 0.78 MG/DL (0.55-1.02); GLOMERULAR FILTRATION RATE > 60.0 (>58); GLUCOSE, FASTING 97 MG/DL (70-105); POTASSIUM SERUM 4.2 MEQ/L (3.5-5.1); SODIUM LEVEL 143 MEQ/L (136-145); TOTAL PROTEIN 6.9 GM/DL (6.4-8.2)
== END ==
LOC: M SFHCPLAZ 08:35
PROVIDERS: ATTEND Nurse Practitioner Family
DX: K21.9 Gastro-esophageal reflux disease without esophagitis (principal); E83.42 Hypomagnesemia; E55.9 Vitamin D deficiency, unspecified

== ENCOUNTER → 2016-07-06 | Outpatient (CLI) | payer OTHER ==
--- NOTE | 2016-07-18 00:31 | ECWPNPC ---
PATIENT NAME: SONY FAIR : 1975 GENDER: FEMALE VISIT DATE: 07/06/2016 DISCHARGE DATE: 07/06/16 1559 VISIT LOCKED DATE TIME: PHYSICIAN: HARISH ROCA RESOURCE: HARISH ROCA HISTORY OF PRESENT ILLNESS HISTORY OF PRESENT ILLNESS: HERE FOR F/U OF CHRONIC LBP AND HIP PAIN.LAST VISIT WAS ONE YEAR AGO.STATES SHE STARTED NEW JOB AND HAS HARD TIME GETTING OUT OF WORK.PAIN IS AGGREVATED BY PRESSURE OR PROLONGED SITTING OR STANDING.PAIN RELIEVED SOMEWHAT WITH HEAT.RATING PAIN 7/10 VAS.PAIN IS DESRIBED CONSTANT ACHING AND STABBING LOCATED ACROSS LOW BACK AND NECK.COMPLAINTS OF GENERALIZED JOINT PAIN.DISCUSSED MEDICATION AND TREATMENT OPTIONS. PAIN THE PATIENT DESCRIBES THE PAIN... FALL RISK SCREENING: SCREENING :NO FALLS IN THE PAST YEAR CURRENT MEDICATIONS TAKING MAGNESIUM OXIDE 500 MG TABLET 1 TAB(S) ORALLY TWICE DAILY WITH MEAL TAKING OMEPRAZOLE 40MG 40 MG CAPSULE 1 CAP(S) BEFORE MEAL ORALLY TWICE A DAY TAKING TOPAMAX 100 MG TABLET 1TAB AM,1/2 TAB PM ORALLY TWICE A DAY, NOTES: TRICKY TAKING AMITRIPTYLINE HCL 50 MG TABLET 1 TABLET AT BEDTIME ORALLY AT BEDTIME, NOTES: TRICKY TAKING MAXALT 5 MG TABLET 1 TABLET NEEDED ONE TIME ORALLY ONCE A DAY, NOTES: TRICKY TAKING ACETAMINOPHEN 500 MG CAPSULE 2 CAPSULES NEEDED ORALLY EVERY 8 HRS TAKING ALBUTEROL SULFATE HFA 108 (90 BASE) MCG/ACT AEROSOL SOLUTION 2 PUFFS NEEDED INHALATION EVERY 4 HRS, NOTES: ER TAKING FLEXERIL 10 MG TABLET 1 TABLET ORALLY BID PRN, NOTES: PAIN CLINIC TAKING CYMBALTA 30 MG CAPSULE DELAYED RELEASE PARTICLES 1 CAPSULE ORALLY ONCE A DAY, NOTES: PAIN CLINIC TAKING METAMUCIL 0.52 GM CAPSULE 2-3 CAPSULES WITH 8 OUNCES OF LIQUID NEEDED ORALLY ONCE A DAY NEEDED TAKING ASPIR-81 81 MG TABLET DELAYED RELEASE 1 TABLET ORALLY ONCE A DAY TAKING VITAMIN D 1000 UNIT CAPSULE 2 CAPS ORALLY ONCE A DAY WITH MEAL TAKING DRISDOL 56355 UNIT CAPSULE 1 CAPSULE ORALLY ONCE A WEEK WITH MEAL TAKING CALCIUM 600+D 600-400 MG-UNIT TABLET 1 TABLET WITH FOOD ORALLY ONCE A DAY TAKING HALOBETASOL PROPIONATE 0.05 % OINTMENT 1 APPLICATION TO AFFECTED AREAS ON ELBOWS AND KNEES EXTERNALLY TWICE A DAY X 1 WEEK, THEN ONCE A DAY X 1 WEEK, THEN STOP X 1 WEEK NOT-TAKING LYRICA 200 MG CAPSULE 1 CAPSULE ORALLY TWICE A DAY, NOTES: PAIN CLINIC PAST MEDICAL HISTORY DIVERTICULOSIS/ DIVERTICULITIS S/P COLECTOMY PER DR LEON, DR BARROW GERD- UPPER GI - OMEPRAZOLE SPINA BIFIDA- SEVERE BACK PAIN- PAIN CLINIC, NEURO- MRI KNEE PAIN, ARTHRITIS - SOS LOW MAGNESIUM LEVELS VITAMIN D DEFICIENCY OBESITY CHRONIC MIGRAINE WITHOUT AURA, WITHOUT MENTION OF INTRACTABLE MIGRAINE WITHOUT MENTION OF STATUS MIGRAINOSUS - NEUROLOGY CHRONIC LOW BACK PAIN CVA DISCOVERED ON CT SCAN ALLERGIES N.K.D.A. REVIEW OF SYSTEMS CONSTITUTIONAL: ANY CHANGE IN YOUR MEDICAL CONDITION? NO . CHILLS NO . FEVER NO . INFECTION: DO YOU HAVE NEW INFECTIONS? NO . DO YOU HAVE HISTORY OF MRSA? NO . MUSCULOSKELETAL: ANY NEW PATTERNS OF PAIN OR NUMBNESS? NO . GASTROENTEROLOGY: ANY NEW CHANGE IN BOWEL CONTROL? NO . GENITOURINARY: ANY NEW CHANGE IN BLADDER CONTROL? NO . IS THERE A CHANCE YOU COULD BE ? NO . HEMATOLOGY/LYMPH: DO YOU TAKE ANY BLOOD THINNERS? (FOR EXAMPLE- COUMADIN, PLAVIX, AGGRENOX, PLATEL, PRADAXA, OR XARELTO) NO . WHEN WAS YOUR LAST DOSE? DATE: TIME: . NEUROLOGY: HAVE YOU FALLEN IN THE PAST 6 MONTHS? NO . ANY NEW EXTREMITY NUMBNESS OR WEAKNESS? NO . CARDIOLOGY: DO YOU HAVE A PACEMAKER OR DEFIBRILLATOR? NO . RESPIRATORY: HAVE YOU BEEN SICK IN THE PAST WEEK? NO . FEVER NO . FLU LIKE SYMPTOMS? NO . COUGH NO . INTEGUMENTARY: DO YOU HAVE ANY RASHES OR OPEN SORES? NO . ALLERGIC/IMMUNO: ARE YOU ALLERGIC TO SHELLFISH OR IV DYE? NO . ANY NEW ALLERGIES? NO . PSYCHIATRIC: DO YOU HAVE THOUGHTS OF HURTING YOURSELF OR SOMEONE ELSE? NO . ARE YOU ABUSED, NEGLECTED, OR IN AN UNSAFE ENVIRONMENT? NO . ENDOCRINOLOGY: ARE YOU DIABETIC? NO . OTHER: DO YOU NEED ANY PRESCRIPTIONS? YES . IF YES, PLEASE LIST: LYRICA, FLEXERIL, CYMBALTA . ANY NEW PROBLEMS WITH YOUR MEDICATIONS? NO . WHEN DID YOU LAST EAT? ____ . WHEN DID YOU LAST DRINK? ____ . WHAT DID YOU LAST DRINK? ____ . NAME OF PERSON DRIVING YOU HOME? ____ . DO YOU HAVE ANY OTHER QUESTIONS OR CONCERNS NO . REVIEWED BY: PROVIDER: HARISH LOUIS . VITAL SIGNS WT 207.0 LBS, HT 65 IN, BMI 34.44 INDEX, BP 120/66 MM HG, HR 57 /MIN, RR 16 /MIN, TEMP 96.7 F, OXYGEN SAT % 100%, NA INITIALS TL 1502, REVIEWED BY: AD. EXAMINATION GENERAL EXAMINATION: LUNGS:LUNG SOUNDS ARE CLEAR. HEART:HEART RATE REGULAR. MUSCULOSKELETAL:MUSCLE STRENGTH TESTING 5/5 BILATERAL, PALPATION: POSITIVE FOR PAIN OVER L/S SPINE. POSITIVE FOR PAIN OVER L/S PARSPINALS.MULTIPLE AEAS OF TENDER SPOTS BILAT. UPPER AND LOWER TORSO INDICATIVE OF FIBROMYALGIA.. ASSESSMENTS MYALGIA - M79.1 (PRIMARY) TREATMENT MYALGIA REFILL FLEXERIL TABLET, 10 MG, 1 TABLET, ORALLY, BID PRN, 30 DAY(S), 60, REFILLS 2, NOTES: PAIN CLINIC REFILL CYMBALTA CAPSULE DELAYED RELEASE PARTICLES, 30 MG, 1 CAPSULE, ORALLY, ONCE A DAY, 30 DAY(S), 30 CAPSULE, REFILLS 2, NOTES: PAIN CLINIC PROCEDURE CODES FA211 ESTABILISHED PATIENT [facility] CHARGE DISPOSITION & COMMUNICATION FOLLOW UP 3 MONTHS ELECTRONICALLY SIGNED BY HERIBERTO CHÁVEZ ON 07/17/2016 AT 09:13 AM EDT DISCLAIMER : THIS IS A VISIT SUMMARY EXTRACTED FROM THE [employer] CHART. IT IS NOT A COPY OF THE [employer] PROGRESS NOTE. LESLIE
== END ==
LOC: M PAIN 15:00
PROVIDERS: ATTEND Nurse Practitioner Family
DX: G89.29 Other chronic pain (principal); M79.1 Myalgia; M54.5 Low back pain; M25.559 Pain in unspecified hip; K21.9 Gastro-esophageal reflux disease without esophagitis; Q05.9 Spina bifida, unspecified; M17.10 Unilateral primary osteoarthritis, unspecified knee; E55.9 Vitamin D deficiency, unspecified; E66.9 Obesity, unspecified; Z68.34 Body mass index [BMI] 34.0-34.9, adult; G43.909 Migraine, unspecified, not intractable, without status migrainosus; Z79.82 Long term (current) use of aspirin; Z79.899 Other long term (current) drug therapy

== ENCOUNTER → 2016-08-23 | Outpatient (REF) | payer OTHER ==
[2016-08-23 14:05] LABS: MEAN CORPUSCULAR HGB CONC 33.2 g/dl (32.0-36.5); MEAN CORPUSCULAR VOLUME 93.3 fl (80.0-96.0); RED CELL DISTRIBUTION WIDTH 12.1 % (11.5-14.5); WHITE BLOOD COUNT 6.6 K/mm3 (4.0-10.0)
[2016-08-23 14:14] LABS: ALBUMIN 4.1 GM/DL (3.2-5.2); ALBUMIN/GLOBULIN RATIO 1.37 (1.00-1.93); ALKALINE PHOSPHATASE 91 U/L (45-117); ALT/SGPT 18 U/L (12-78); ANION GAP 7 MEQ/L (8-16); AST/SGOT 16 U/L (15-37); BILIRUBIN,TOTAL 0.7 MG/DL (0.2-1.0); BLOOD UREA NITROGEN 17 MG/DL (7-18); CALCIUM LEVEL 9.4 MG/DL (8.5-10.1); CARBON DIOXIDE LEVEL 27 MEQ/L (21-32); CHLORIDE LEVEL 101 MEQ/L (98-107); CREATININE FOR GFR 0.81 MG/DL (0.55-1.02); FREE T4 1.23 NG/DL (0.76-1.46); GLOMERULAR FILTRATION RATE > 60.0 (>58); GLUCOSE, FASTING 90 MG/DL (70-105); POTASSIUM SERUM 4.6 MEQ/L (3.5-5.1); SODIUM LEVEL 135 MEQ/L (136-145); TOTAL PROTEIN 7.1 GM/DL (6.4-8.2)
== END ==
LOC: M SFHCPLAZ 08:42
PROVIDERS: ATTEND Nurse Practitioner Family
DX: L30.9 Dermatitis, unspecified (principal); E55.9 Vitamin D deficiency, unspecified

== ENCOUNTER 2017-01-20 10:24 | Emergency (ER) | payer OTHER ==
[~2017-01-20] VITALS: Ht 165.1 cm; Wt 89.5 kg
[~2017-01-20 10:24] MED LIST changes: -NAPR500T2 PO; +NAPR500T3 PO
[2017-01-20] MEDS ORDERED: NS 1,000 ML IV ONE (11:45)
[2017-01-20] MEDS ORDERED: MORPHINE 2 MG/ML 1ML SYRINGE IV ONE (11:45)
[2017-01-20] MEDS ORDERED: ONDANSETRON 4MG/2ML VIAL (J2405) IV ONE (11:45)
[2017-01-20 11:57] LABS: BASO # 0.1 10^3/uL (0.0-0.2); BASO % 0.7 % (0.0-1.0); EOS # 0.2 10^3/uL (0.0-0.50); EOS % 1.5 % (0.0-3.0); IMMATURE GRANULOCYTE % 0.4 % (0-0); LYMPH # 2.1 10^3/uL (1.5-4.5); LYMPH % 21.8 % (24.0-44.0); MEAN CORPUSCULAR HEMOGLOBIN 30.5 pg (27.0-33.0); MEAN CORPUSCULAR VOLUME 89.7 fl (80.0-96.0); MONO # 0.5 10^3/uL (0.0-0.8); MONO % 4.7 % (0.0-5.0); NEUTROPHILS # 6.9 10^3/uL (1.8-7.7); NEUTROPHILS % 70.9 % (36.0-66.0); PLATELET COUNT, AUTOMATED 371 10^3/uL (150-450); RED CELL DISTRIBUTION WIDTH 12.2 % (11.5-14.5); WHITE BLOOD COUNT 9.8 10^3/uL (4.0-10.0)
[2017-01-20 11:58] LABS: CONTROL LINE UCG INT CTR LINE PRESENT
[2017-01-20] MEDS ORDERED: GASTROGRAFIN SOLUTION 30ML PO ONE (12:00)
[2017-01-20 12:10] LABS: INR 1.01
[2017-01-20 12:11] LABS: ANION GAP 7 MEQ/L (8-16); BLOOD UREA NITROGEN 16 MG/DL (7-18); CALCIUM LEVEL 9.2 MG/DL (8.5-10.1); CARBON DIOXIDE LEVEL 25 MEQ/L (21-32); CHLORIDE LEVEL 104 MEQ/L (98-107); CREATININE FOR GFR 0.85 MG/DL (0.55-1.02); GLOMERULAR FILTRATION RATE > 60.0 (>58); GLUCOSE, FASTING 98 MG/DL (70-105); POTASSIUM SERUM 3.7 MEQ/L (3.5-5.1); SODIUM LEVEL 136 MEQ/L (136-145)
[2017-01-20] MEDS ORDERED: ISOVUE-370 76% 100ML VIAL (Q9967) As Ordered ONE (12:13)
[2017-01-20] MEDS ORDERED: GASTROGRAFIN SOLUTION 30ML (Q9963) PO ONE (12:30)
[2017-01-20 14:14] VITALS: BP 120/67
[2017-01-20] MEDS ORDERED: BACT800T5 PO (14:43)
--- NOTE | 2017-01-20 14:58 | REP ---
CT ABDOMEN AND PELVIS WITH CONTRAST: HISTORY: Left lower quadrant pain. CONTRAST: Isovue 370, 100 mL. COMPARISON: 04/29/2016 The patient is status post cholecystectomy. A calcification is present in the left kidney consistent with nephrolithiasis. The liver, pancreas, spleen, adrenal glands and right kidney are normal in appearance. There is no mass, adenopathy or free fluid. A small 2.2 cm ventral abdominal hernia containing fat is present. The visualized lungs are clear. The patient is status post hysterectomy and partial sigmoid colon resection. The urinary bladder is normal in appearance. Degenerative change is present in the spine. IMPRESSION: 1. The patient is status post cholecystectomy. 2. Small 2.2 cm ventral abdominal hernia. 3. The patient is status post hysterectomy. 4. The patient is status post partial sigmoid colon resection. Signed by Doyle Lechuga MD 01/20/2017 03:48 P
== END 2017-01-20 15:00 | disposition home or self-care (01) ==
LOC: M ED 10:24
DX: N39.0 Urinary tract infection, site not specified (principal)
CPT/HCPCS: 74177; 80048; 81001; 84703; 85025; 85610; 96374; 96375; 99284; J2405; Q9963; Q9967

== ENCOUNTER → 2017-04-11 | Outpatient (CLI) | payer OTHER ==
[2017-04-11 19:41] LABS: ERYTHROCYTE SEDIMENTATION RATE 7 mm/hr (0-20)
[2017-04-11 19:49] LABS: RHEUMATOID FACTOR QUANT < 10.0 IU/ML (0-15.0)
[2017-04-11 20:04] LABS: VITAMIN B12 LEVEL 391 PG/ML (247-911)
[2017-04-11 20:04] LABS: FOLATE 3.5 NG/ML (>5.4); TOTAL 25(OH) VITAMIN D 18.6 NG/ML (30.0-100.0)
[2017-04-13 15:10] LABS: ANTINUCLEAR ANTIBODIES DIRECT Negative (Negative)
[2017-04-16 10:08] LABS: DRVV SCREEN 40.5 SEC
[2017-04-16 10:14] LABS: PTT LUPUS TYPE ANTICOAG SCREEN 0.9 (0-1.2)
== END ==
LOC: M LAB 15:29
DX: E55.9 Vitamin D deficiency, unspecified (principal); M25.551 Pain in right hip
CPT/HCPCS: 73502

== ENCOUNTER 2017-05-24 07:48 | Emergency (ER) | payer OTHER ==
[2017-05-24] MEDS: METOCLOPRAMIDE INJ 10MG/2ML VIAL (J2765) IV (08:28)
[2017-05-24] MEDS: diphenhydrAMINE INJ 50MG/ML VIAL (J1200) IV (08:28)
[2017-05-24 08:29] LABS: BASO # 0.1 10^3/uL (0.0-0.2); BASO % 1.2 % (0.0-1.0); EOS # 0.2 10^3/uL (0.0-0.50); EOS % 3.6 % (0.0-3.0); HEMATOCRIT 39.5 % (36.0-47.0); HEMOGLOBIN 13.1 g/dl (12.0-16.0); IMMATURE GRANULOCYTE % 0.4 % (0-3.0); LYMPH # 1.8 10^3/uL (1.5-4.5); LYMPH % 36.1 % (24.0-44.0); MEAN CORPUSCULAR HEMOGLOBIN 29.6 pg (27.0-33.0); MEAN CORPUSCULAR HGB CONC 33.2 g/dl (32.0-36.5); MEAN CORPUSCULAR VOLUME 89.4 fl (80.0-96.0); MONO # 0.3 10^3/uL (0.0-0.8); MONO % 6.6 % (0.0-5.0); NEUTROPHILS # 2.6 10^3/uL (1.8-7.7); NEUTROPHILS % 52.1 % (36.0-66.0); PLATELET COUNT, AUTOMATED 319 10^3/uL (150-450); RED BLOOD COUNT 4.42 10^6/uL (4.00-5.40); RED CELL DISTRIBUTION WIDTH 11.7 % (11.5-14.5)
[2017-05-24] MEDS: KETOROLAC 30 MG/ML VIAL (J1885) IV (08:29)
[2017-05-24 08:46] LABS: ANION GAP 7 MEQ/L (8-16); BLOOD UREA NITROGEN 22 MG/DL (7-18); C REACTIVE PROTEIN QUANTITATIV < 0.30 MG/DL (0.00-0.30); CALCIUM LEVEL 9.3 MG/DL (8.5-10.1); CARBON DIOXIDE LEVEL 26 MEQ/L (21-32); CHLORIDE LEVEL 106 MEQ/L (98-107); CREATININE FOR GFR 0.95 MG/DL (0.55-1.30); GLOMERULAR FILTRATION RATE > 60.0 (>58); GLUCOSE, FASTING 98 MG/DL (70-100); POTASSIUM SERUM 3.9 MEQ/L (3.5-5.1); SODIUM LEVEL 139 MEQ/L (136-145)
[2017-05-24 09:01] LABS: ERYTHROCYTE SEDIMENTATION RATE 12 mm/hr (0-20)
[2017-05-24] MEDS: methylPREDNISolone INJ 125 MG/2 ML VIAL (J2930) IV (09:41)
== END 2017-05-24 10:30 | disposition home or self-care (01) ==
LOC: M ED 07:48
DX: G43.909 Migraine, unspecified, not intractable, without status migrainosus (principal); K21.9 Gastro-esophageal reflux disease without esophagitis; Q05.9 Spina bifida, unspecified; I67.1 Cerebral aneurysm, nonruptured; Z79.899 Other long term (current) drug therapy; Z79.82 Long term (current) use of aspirin
CPT/HCPCS: J1200

== ENCOUNTER → 2017-08-20 | Outpatient (CLI) | payer OTHER ==
[2017-08-20 15:50] LABS: ALBUMIN 3.5 GM/DL (3.2-5.2); ALKALINE PHOSPHATASE 66 U/L (45-117); ALT/SGPT 23 U/L (12-78); ANION GAP 7 MEQ/L (8-16); AST/SGOT 12 U/L (7-37); BILIRUBIN,TOTAL 0.3 MG/DL (0.2-1.0); BLOOD UREA NITROGEN 14 MG/DL (7-18); CALCIUM LEVEL 8.8 MG/DL (8.5-10.1); CARBON DIOXIDE LEVEL 25 MEQ/L (21-32); CHLORIDE LEVEL 109 MEQ/L (98-107); CREATININE FOR GFR 0.84 MG/DL (0.55-1.30); GLOMERULAR FILTRATION RATE > 60.0 (>58); GLUCOSE, FASTING 117 MG/DL (70-100); MAGNESIUM LEVEL 1.9 MG/DL (1.8-2.4); POTASSIUM SERUM 3.7 MEQ/L (3.5-5.1); SODIUM LEVEL 141 MEQ/L (136-145)
[2017-08-20 15:56] LABS: TOTAL 25(OH) VITAMIN D 20.5 NG/ML (30.0-100.0); VITAMIN B12 LEVEL 265 PG/ML (247-911)
== END ==
LOC: M WUC 13:35
DX: K21.9 Gastro-esophageal reflux disease without esophagitis (principal); E83.42 Hypomagnesemia; E55.9 Vitamin D deficiency, unspecified
CPT/HCPCS: 83735

== ENCOUNTER 2017-10-13 07:45 | Emergency (ER) | payer OTHER ==
[2017-10-13] MEDS: KETOROLAC TROMETHAMINE 10 MG TAB PO (08:12)
== END 2017-10-13 08:38 | disposition home or self-care (01) ==
LOC: M ED 07:45
DX: S43.401A Unspecified sprain of right shoulder joint, initial encounter (principal); M54.2 Cervicalgia; X50.0XXA Overexertion from strenuous movement or load, initial encounter; Y92.098 Other place in other non-institutional residence as the place of occurrence of the external cause; Q05.9 Spina bifida, unspecified; K21.9 Gastro-esophageal reflux disease without esophagitis; G43.909 Migraine, unspecified, not intractable, without status migrainosus; K57.92 Diverticulitis of intestine, part unspecified, without perforation or abscess without bleeding; Z79.899 Other long term (current) drug therapy; Z79.82 Long term (current) use of aspirin
CPT/HCPCS: 73030

== ENCOUNTER → 2018-01-03 | Outpatient (REF) | payer OTHER ==
[2018-01-03 15:43] LABS: HEMATOCRIT 40.9 % (36.0-47.0); HEMOGLOBIN 13.4 g/dl (12.0-15.5); MEAN CORPUSCULAR HEMOGLOBIN 29.4 pg (27.0-33.0); MEAN CORPUSCULAR HGB CONC 32.8 g/dl (32.0-36.5); MEAN CORPUSCULAR VOLUME 89.7 fl (80.0-96.0); PLATELET COUNT, AUTOMATED 309 10^3/uL (150-450); RED BLOOD COUNT 4.56 10^6/uL (4.00-5.40); RED CELL DISTRIBUTION WIDTH 12.1 % (11.5-14.5); WHITE BLOOD COUNT 5.9 10^3/uL (4.0-10.0)
[2018-01-03 16:43] LABS: ALBUMIN/GLOBULIN RATIO 1.11 (1.00-1.93); ALKALINE PHOSPHATASE 64 U/L (45-117); ALT/SGPT 26 U/L (12-78); ANION GAP 9 MEQ/L (8-16); AST/SGOT 18 U/L (7-37); BILIRUBIN,TOTAL 0.3 MG/DL (0.2-1.0); BLOOD UREA NITROGEN 16 MG/DL (7-18); CALCIUM LEVEL 9.5 MG/DL (8.5-10.1); CARBON DIOXIDE LEVEL 26 MEQ/L (21-32); CHLORIDE LEVEL 107 MEQ/L (98-107); CREATININE FOR GFR 0.82 MG/DL (0.55-1.30); FOLATE 4.2 NG/ML; GLOMERULAR FILTRATION RATE > 60.0 (>58); GLUCOSE, FASTING 93 MG/DL (70-100); SODIUM LEVEL 142 MEQ/L (136-145); TOTAL 25(OH) VITAMIN D 26.4 NG/ML (30.0-100.0); TOTAL PROTEIN 7.6 GM/DL (6.4-8.2)
== END ==
LOC: M SFHCPLAZ 13:51
DX: E53.8 Deficiency of other specified B group vitamins (principal); R60.0 Localized edema; E55.9 Vitamin D deficiency, unspecified
CPT/HCPCS: 82746

== ENCOUNTER 2018-02-18 14:07 | Emergency (ER) | payer OTHER ==
[2018-02-18] MEDS: NS 1,000 ML IV (16:00)
[2018-02-18] MEDS: GASTROGRAFIN SOLUTION 30ML PO ×2 (16:20→16:50)
[2018-02-18] MEDS: ONDANSETRON 4MG/2ML VIAL (J2405) IV (16:23)
[2018-02-18] MEDS: MORPHINE 2 MG/ML 1ML SYRINGE (J2270) IV (16:23)
[2018-02-18 16:25] LABS: BASO # 0.1 10^3/uL (0.0-0.2); BASO % 0.7 % (0.0-1.0); EOS # 0.1 10^3/uL (0.0-0.50); EOS % 1.4 % (0.0-3.0); HEMATOCRIT 40.6 % (36.0-47.0); HEMOGLOBIN 13.5 g/dl (12.0-15.5); IMMATURE GRANULOCYTE % 0.3 % (0-3.0); LYMPH # 2.3 10^3/uL (1.5-4.5); LYMPH % 26.9 % (24.0-44.0); MEAN CORPUSCULAR HEMOGLOBIN 29.9 pg (27.0-33.0); MEAN CORPUSCULAR HGB CONC 33.3 g/dl (32.0-36.5); MEAN CORPUSCULAR VOLUME 89.8 fl (80.0-96.0); MONO # 0.5 10^3/uL (0.0-0.8); MONO % 5.3 % (0.0-5.0); NEUTROPHILS # 5.7 10^3/uL (1.8-7.7); NEUTROPHILS % 65.4 % (36.0-66.0); PLATELET COUNT, AUTOMATED 326 10^3/uL (150-450); RED BLOOD COUNT 4.52 10^6/uL (4.00-5.40); RED CELL DISTRIBUTION WIDTH 12.9 % (11.5-14.5); WHITE BLOOD COUNT 8.7 10^3/uL (4.0-10.0)
[2018-02-18 16:35] LABS: KETONE, URINE AUTO RFX NEGATIVE (NEGATIVE); MUCUS, URINE RFX SMALL (NEGATIVE); NITRITE, URINE AUTO RFX NEGATIVE (NEGATIVE); RBC, URINE AUTO RFX 1 /HPF (0-3); SPECIFIC GRAVITY UR AUTO RFX 1.026 (1.002-1.035); SQUAM EPITHELIAL CELL UR AURFX 1 /HPF (0-6); WBC, URINE AUTO RFX 1 /HPF (0-3)
[2018-02-18 16:40] LABS: LEUKOCYTE ESTERASE UR AUTO RFX TRACE (NEGATIVE)
[2018-02-18 16:43] LABS: LACTIC ACID SEPSIS PROTOCOL 0.9 MMOL/L (0.4-2.0)
[2018-02-18 16:44] LABS: ALBUMIN 3.7 GM/DL (3.2-5.2); ALBUMIN/GLOBULIN RATIO 1.03 (1.00-1.93); ALKALINE PHOSPHATASE 69 U/L (45-117); ALT/SGPT 19 U/L (12-78); ANION GAP 7 MEQ/L (8-16); AST/SGOT 9 U/L (7-37); BILIRUBIN,DIRECT 0.1 MG/DL (0.0-0.2); BILIRUBIN,TOTAL 0.5 MG/DL (0.2-1.0); BLOOD UREA NITROGEN 17 MG/DL (7-18); CALCIUM LEVEL 8.6 MG/DL (8.5-10.1); CARBON DIOXIDE LEVEL 25 MEQ/L (21-32); CHLORIDE LEVEL 107 MEQ/L (98-107); GLOMERULAR FILTRATION RATE > 60.0 (>58); GLUCOSE, FASTING 103 MG/DL (70-100); LIPASE 142 U/L (73-393); POTASSIUM SERUM 3.7 MEQ/L (3.5-5.1); SODIUM LEVEL 139 MEQ/L (136-145); TOTAL PROTEIN 7.3 GM/DL (6.4-8.2)
[2018-02-18] MEDS ORDERED: ISOVUE-370 76% 100ML VIAL (Q9967) As Ordered (18:20)
[2018-02-18] MEDS: MAGNESIUM CITRATE 300 ML BTL PO (19:30)
== END 2018-02-18 19:49 | disposition home or self-care (01) ==
LOC: M ED 14:07
DX: K59.00 Constipation, unspecified (principal); K21.9 Gastro-esophageal reflux disease without esophagitis; G43.909 Migraine, unspecified, not intractable, without status migrainosus; Q05.9 Spina bifida, unspecified
CPT/HCPCS: Q9963

== ENCOUNTER → 2018-04-01 | Outpatient (CLI) | payer OTHER ==
[~2018-04-01] MED LIST changes: +ASPI81TA85 PO; +BACT800T5 PO; +BUTALB-ACETAMIN-CAFF; +CYCL5TAB PO; +MIRA3350 PO; +NAPR-50 PO; +NAPR-885 PO; -NAPR500T3 PO; +ZONI100C2
--- NOTE | 2018-04-02 07:48 | REP ---
Clinical: Adnexal mass. Comparison: 09/14/2013 . Technique: Transabdominal pelvic ultrasound followed by transvaginal examination for better evaluation of the endometrium and adnexa with color Doppler evaluation of the ovaries. Findings: Bladder is unremarkable and measures 7.1 x 3.7 x 3.8 cm . The patient is noted to be status post hysterectomy and bilateral oophorectomy. Complex multicystic lesion in the left adnexa with scattered septations measures 5.7 x 2.6 x 3.3 cm with the largest cystic component measuring 3.4 x 2.7 x 2.8 cm Impression: 1. Complex cystic lesion in the left adnexa. Findings are otherwise nonspecific. Cystadenoma versus physiologic cysts versus possible other neoplastic lesions cannot be excluded or differentiated. Electronically Signed by James Cordero MD 04/02/2018 07:40 A
== END ==
LOC: M WHC 13:32
PROVIDERS: ATTEND Nurse Practitioner Family
DX: N94.9 Unspecified condition associated with female genital organs and menstrual cycle (principal)

== ENCOUNTER → 2018-04-03 | Outpatient (REF) | payer OTHER ==
[~2018-04-03] MED LIST changes: +ULTR50TA8 PO
[2018-04-03 18:17] LABS: C REACTIVE PROTEIN QUANTITATIV < 0.30 MG/DL (0.00-0.30)
[2018-04-03 18:18] LABS: BASO % 0.6 % (0.0-1.0); EOS # 0.1 10^3/uL (0.0-0.50); EOS % 1.3 % (0.0-3.0); HEMATOCRIT 43.1 % (36.0-47.0); HEMOGLOBIN 14.1 g/dl (12.0-15.5); LYMPH # 2.2 10^3/uL (1.5-4.5); MEAN CORPUSCULAR HGB CONC 32.7 g/dl (32.0-36.5); MEAN CORPUSCULAR VOLUME 91.7 fl (80.0-96.0); MONO # 0.4 10^3/uL (0.0-0.8); MONO % 6.4 % (0.0-5.0); NEUTROPHILS # 3.5 10^3/uL (1.8-7.7); NEUTROPHILS % 56.2 % (36.0-66.0); PLATELET COUNT, AUTOMATED 337 10^3/uL (150-450); WHITE BLOOD COUNT 6.3 10^3/uL (4.0-10.0)
[2018-04-03 19:03] LABS: ERYTHROCYTE SEDIMENTATION RATE 7 mm/hr (0-20)
[2018-04-04 10:40] LABS: CA 125 6.5 U/ML (<30.2)
== END ==
LOC: M SFHCPLAZ 15:20
PROVIDERS: ATTEND Nurse Practitioner Family
DX: N94.9 Unspecified condition associated with female genital organs and menstrual cycle (principal)

== ENCOUNTER → 2018-05-08 | Outpatient (CLI) | payer OTHER ==
--- NOTE | 2018-05-08 15:04 | REP ---
Clinical: Left ovarian cyst. Comparison: 04/01/2018 . Technique: Transabdominal pelvic ultrasound followed by transvaginal examination for better evaluation of the endometrium and adnexa with color Doppler evaluation of the ovaries. Findings: Bladder is unremarkable and measures 5.4 x 2.2 x 5.8 cm . The patient is noted to be status post hysterectomy and bilateral oophorectomy. A complex cystic left adnexal lesion is again identified which currently measures approximately 3.7 x 2.0 x 2.1 cm with different morphologic appearance as compared to prior examination suggesting the possibility of residual left ovary with physiologic cystic changes. Differential diagnosis may include focal area of chronic hydrosalpinx. Impression: 1. Complex cystic lesion in the left adnexa has a similar but variable appearance when compared to prior examination. Differential diagnosis would include residual left ovary with physiologic cystic changes as well as chronic focal hydrosalpinx. Electronically Signed by James Cordero MD 05/08/2018 02:56 P
[2018-05-08 18:47] LABS: LDH LACTATE DEHYDROGENASE 176 U/L (84-246)
[2018-05-09 10:46] LABS: CA 125 6.3 U/ML (<30.2)
[2018-05-09 10:47] LABS: CA19-9 TUMOR MARKER,CARBOHYDRA 40.7 U/ML (<35.0)
[2018-05-14 00:07] LABS: INHIBIN B <7.0 pg/mL (.)
== END ==
LOC: M SMT 13:22
PROVIDERS: ATTEND Obstetrics & Gynecology
DX: N83.292 Other ovarian cyst, left side (principal)

== ENCOUNTER 2018-06-02 07:25 | Emergency (ER) | payer OTHER ==
[~2018-06-02] VITALS: Ht 165.1 cm; Wt 93.3 kg
[~2018-06-02 07:25] MED LIST changes: -/AMIT100TA PO; -/ESOM40CA OR; -/ONDA4TA OR; +AMIT1TAB12 PO; -NAPR-50 PO; +NAPR-837 PO; +NEXI1CAP3 OR; +ONDA-1 OR
[2018-06-02] MEDS ORDERED: AMIT25TA (07:31)
[2018-06-02] MEDS ORDERED: RIZA10TA4 (07:31)
[2018-06-02 08:43] LABS: BASO % 0.7 % (0.0-1.0); EOS # 0.1 10^3/uL (0.0-0.50); EOS % 2.1 % (0.0-3.0); HEMATOCRIT 41.1 % (36.0-47.0); HEMOGLOBIN 13.5 g/dl (12.0-15.5); LYMPH # 1.3 10^3/uL (1.5-4.5); LYMPH % 22.8 % (24.0-44.0); MEAN CORPUSCULAR HGB CONC 32.8 g/dl (32.0-36.5); MEAN CORPUSCULAR VOLUME 88.4 fl (80.0-96.0); MONO # 0.3 10^3/uL (0.0-0.8); MONO % 5.7 % (0.0-5.0); NEUTROPHILS % 68.2 % (36.0-66.0); PLATELET COUNT, AUTOMATED 298 10^3/uL (150-450); RED BLOOD COUNT 4.65 10^6/uL (4.00-5.40); WHITE BLOOD COUNT 5.8 10^3/uL (4.0-10.0)
[2018-06-02 08:49] LABS: APPEARANCE, URINE CLEAR (CLEAR); BACTERIA, URINE AUTO NEGATIVE (NEGATIVE); BILIRUBIN, URINE AUTO NEGATIVE (NEGATIVE); BLOOD, URINE BLOOD NEGATIVE (NEGATIVE); COLOR, URINE YELLOW (YELLOW); GLUCOSE, URINE (UA) AUTO NEGATIVE (NEGATIVE); KETONE, URINE AUTO NEGATIVE (NEGATIVE); LEUKOCYTE ESTERASE, URINE AUTO NEGATIVE (NEGATIVE); MUCUS, URINE SMALL (NEGATIVE); NITRITE, URINE AUTO NEGATIVE (NEGATIVE); PROTEIN, URINE AUTO NEGATIVE (NEGATIVE); RBC, URINE AUTO 2 /HPF (0-3); SPECIFIC GRAVITY URINE AUTO 1.016 (1.002-1.035); SQUAMOUS EPITHELIAL CELL UR AU 1 /HPF (0-6); UROBILINOGEN, URINE AUTO 0.2 mg/dL (0.0-2.0); WBC, URINE AUTO 1 /HPF (0-3)
[2018-06-02 09:19] LABS: ALBUMIN 3.7 GM/DL (3.2-5.2); ALT/SGPT 17 U/L (12-78); AMYLASE 41 U/L (25-115); BILIRUBIN,DIRECT 0.1 MG/DL (0.0-0.2); BILIRUBIN,TOTAL 0.7 MG/DL (0.2-1.0); BLOOD UREA NITROGEN 18 MG/DL (7-18); CARBON DIOXIDE LEVEL 26 MEQ/L (21-32); CHLORIDE LEVEL 107 MEQ/L (98-107); CREATININE FOR GFR 0.88 MG/DL (0.55-1.30); GLOMERULAR FILTRATION RATE > 60.0 (>58); GLUCOSE, FASTING 102 MG/DL (70-100); LIPASE 137 U/L (73-393); POTASSIUM SERUM 4.3 MEQ/L (3.5-5.1); SODIUM LEVEL 138 MEQ/L (136-145); TOTAL PROTEIN 7.2 GM/DL (6.4-8.2)
--- NOTE | 2018-06-02 11:28 | REP ---
KUB ABDOMEN AND PELVIS: KUB films of abdomen and pelvis performed. There is no evidence of bowel obstruction. No dilated small bowel loops are seen. Metallic clips are seen in the right upper quadrant and right lower quadrant and there are surgical sutures in the pelvis. There are multiple phleboliths in the pelvis. The visualized osseous structures are unremarkable. IMPRESSION: No acute findings identified. Electronically Signed by Jarvis Jin MD 06/02/2018 02:47 P
[2018-06-02 11:43] VITALS: BP 116/77
== END 2018-06-02 11:54 | disposition home or self-care (01) ==
LOC: M ED 07:25
DX: R10.9 Unspecified abdominal pain (principal); R19.7 Diarrhea, unspecified; R11.0 Nausea; K21.9 Gastro-esophageal reflux disease without esophagitis; Z79.899 Other long term (current) drug therapy; Z79.82 Long term (current) use of aspirin

== ENCOUNTER → 2018-07-03 | Outpatient (REF) | payer OTHER ==
[~2018-07-03] MED LIST changes: +AMIT25TA; +RIZA10TA4
[2018-07-03 11:01] LABS: ALBUMIN 3.9 GM/DL (3.2-5.2); ALT/SGPT 20 U/L (12-78); BILIRUBIN,TOTAL 0.4 MG/DL (0.2-1.0); BLOOD UREA NITROGEN 14 MG/DL (7-18); CALCIUM LEVEL 8.9 MG/DL (8.5-10.1); CARBON DIOXIDE LEVEL 27 MEQ/L (21-32); CHLORIDE LEVEL 107 MEQ/L (98-107); CREATININE FOR GFR 0.79 MG/DL (0.55-1.30); GLOMERULAR FILTRATION RATE > 60.0 (>58); GLUCOSE, FASTING 87 MG/DL (70-100); POTASSIUM SERUM 4.7 MEQ/L (3.5-5.1); SODIUM LEVEL 139 MEQ/L (136-145); TOTAL PROTEIN 6.9 GM/DL (6.4-8.2)
[2018-07-03 11:15] LABS: TOTAL 25(OH) VITAMIN D 18.3 NG/ML (30.0-100.0)
== END ==
LOC: M SFHCPLAZ 07:55
PROVIDERS: ATTEND Nurse Practitioner Family
DX: R60.0 Localized edema (principal); E55.9 Vitamin D deficiency, unspecified

== ENCOUNTER → 2018-08-11 | Outpatient (CLI) | payer OTHER ==
[2018-08-11 17:50] LABS: ALBUMIN 3.9 GM/DL (3.2-5.2); ALT/SGPT 21 U/L (12-78); BILIRUBIN,DIRECT < 0.1 MG/DL (0.0-0.2); BILIRUBIN,TOTAL 0.4 MG/DL (0.2-1.0); BLOOD UREA NITROGEN 18 MG/DL (7-18); CALCIUM LEVEL 8.9 MG/DL (8.5-10.1); CARBON DIOXIDE LEVEL 26 MEQ/L (21-32); CHLORIDE LEVEL 106 MEQ/L (98-107); CREATININE FOR GFR 0.88 MG/DL (0.55-1.30); GLOMERULAR FILTRATION RATE > 60.0 (>58); GLUCOSE, FASTING 97 MG/DL (70-100); POTASSIUM SERUM 3.9 MEQ/L (3.5-5.1); SODIUM LEVEL 139 MEQ/L (136-145); TOTAL PROTEIN 6.9 GM/DL (6.4-8.2)
[2018-08-11 18:03] LABS: BASO # 0.1 10^3/uL (0.0-0.2); EOS # 0.2 10^3/uL (0.0-0.50); EOS % 3.7 % (0.0-3.0); HEMATOCRIT 39.9 % (36.0-47.0); HEMOGLOBIN 13.3 g/dl (12.0-15.5); LYMPH # 2.2 10^3/uL (1.5-4.5); LYMPH % 37.2 % (24.0-44.0); MEAN CORPUSCULAR HEMOGLOBIN 30.5 pg (27.0-33.0); MEAN CORPUSCULAR HGB CONC 33.3 g/dl (32.0-36.5); MEAN CORPUSCULAR VOLUME 91.5 fl (80.0-96.0); MONO # 0.3 10^3/uL (0.0-0.8); MONO % 5.6 % (0.0-5.0); NEUTROPHILS # 3.1 10^3/uL (1.8-7.7); NEUTROPHILS % 52.2 % (36.0-66.0); PLATELET COUNT, AUTOMATED 275 10^3/uL (150-450); RED BLOOD COUNT 4.36 10^6/uL (4.00-5.40); WHITE BLOOD COUNT 5.9 10^3/uL (4.0-10.0)
[2018-08-15 09:04] LABS: IGASUB3 75.6 mg/dL (13.4-97.9); IgA SERUM (part of Subclasses) 249 mg/dL (87-352); TISSUE TRANSGLUTAMINASE IgA <2 U/mL (0-3)
[2018-08-16 00:06] LABS: CALPROTECTIN STOOL 126 ug/g (0-120); PANCREATIC ELASTASE STOOL 445 (>200)
== END ==
LOC: M LAB 15:58
PROVIDERS: ATTEND Nurse Practitioner Family
DX: R19.7 Diarrhea, unspecified (principal)

== ENCOUNTER → 2018-09-01 | Outpatient (CLI) | payer OTHER ==
[~2018-09-01] MED LIST changes: +MAXA5TAB11 PO
--- NOTE | 2018-09-01 17:56 | REP ---
Clinical: Follow up ovarian cyst. Comparison: 05/08/2018. Technique: Transabdominal pelvic ultrasound. Findings: The patient is noted to be status post hysterectomy and bilateral oophorectomy. No pelvic fluid, cyst or mass lesion appreciated. Bladder is unremarkable and measures approximately 8.6 x 9.3 x 7.4 cm. Impression: Evidence of prior hysterectomy and oophorectomy. No pelvic abnormality by ultrasound. Electronically Signed by James Cordero MD 09/01/2018 05:49 P
== END ==
LOC: M RAD 16:16
PROVIDERS: ATTEND Obstetrics & Gynecology
DX: R10.2 Pelvic and perineal pain (principal); Z90.79 Acquired absence of other genital organ(s)

== ENCOUNTER 2018-09-09 09:34 | Day surgery (SDC) | payer OTHER ==
[~2018-09-09] VITALS: Ht 165.1 cm; Wt 91.2 kg
[~2018-09-09 09:34] MED LIST changes: +LIDOCAINE 2% INJ 100 MG/5 ML SDV (FOR ANES.) As Ordered ONE; +NS 1,000 ML IV ONE; +PROPOFOL 500 MG/50 ML VIAL As Ordered ONE; +fentaNYL 100 MCG/2 ML INJECTION (J3010) As Ordered ONE
[2018-09-09 11:25] VITALS: BP 106/65
--- NOTE | 2018-09-09 11:29 | ROOR ---
Patient Name: Shalonda Rasmussen Procedure Date: 09/09/2018 10:29 AM Date of : 1975 Age: 43 Room: [facility] Gender: Female Note Status: Finalized Procedure: Upper GI endoscopy Indications: Epigastric abdominal pain Providers: Jett Whitehead MD Referring MD: Crista Veliz NP Requesting Provider: Medicines: Monitored Anesthesia Care Complications: No immediate complications. Procedure: Pre-Anesthesia Assessment: - Prior to the procedure, a History and Physical was performed, and patient medications and allergies were reviewed. The patient is competent. The risks and benefits of the procedure and the sedation options and risks were discussed with the patient. All questions were answered and informed consent was obtained. Patient identification and proposed procedure were verified by the physician, the nurse and the anesthesiologist in the procedure room. Mental Status Examination: alert and oriented. Airway Examination: normal oropharyngeal airway and neck mobility. Respiratory Examination: clear to auscultation. CV Examination: normal. Prophylactic Antibiotics: The patient does not require prophylactic antibiotics. Prior Anticoagulants: The patient has taken no previous anticoagulant or antiplatelet agents. ASA Grade Assessment: II - A patient with mild systemic disease. After reviewing the risks and benefits, the patient was deemed in satisfactory condition to undergo the procedure. The anesthesia plan was to use monitored anesthesia care (MAC). Immediately prior to administration of medications, the patient was re-assessed for adequacy to receive sedatives. The heart rate, respiratory rate, oxygen saturations, blood pressure, adequacy of pulmonary ventilation, and response to care were monitored throughout the procedure. The physical status of the patient was re-assessed after the procedure. The Endoscope was introduced through the mouth, and advanced to the second part of duodenum. The upper GI endoscopy was accomplished without difficulty. The patient tolerated the procedure well. Findings: Two tongues of salmon-colored mucosa were present from 33 to 35 cm. No other visible abnormalities were present. The maximum longitudinal extent of these esophageal mucosal changes was 2 cm in length. Biopsies were taken with a cold forceps for histology. Verification of patient identification for the specimen was done by the physician and nurse using the patient's name, date and medical record number. Estimated blood loss was minimal. A small hiatal hernia was present. Scattered moderate inflammation characterized by erythema was found in the gastric body and in the gastric antrum. Biopsies were taken with a cold forceps for Helicobacter pylori testing. The duodenal bulb and second portion of the duodenum were normal. Biopsies for histology were taken with a cold forceps for evaluation of celiac disease. Impression: - [place]-colored mucosa suspicious for short-segment Hernandez's esophagus. Biopsied. - Small hiatal hernia. - Gastritis. Biopsied. - Normal duodenal bulb and second portion of the duodenum. Biopsied. Recommendation: - Patient has a contact number available for emergencies. The signs and symptoms of potential delayed complications were discussed with the patient. Return to normal activities tomorrow. Written discharge instructions were provided to the patient. - Resume previous diet. - Continue present medications. - Await pathology results. - Return to GI clinic in [facility] (address [address], [address], [place] [address]) in 4 -- 6 weeks. Please call GI clinic @ [phone] for apppointment date and time. - Return to primary care physician. - Follow an antireflux regimen. Jett Whitehead MD Jett Whitehead MD 09/09/2018 11:28:30 AM Electronically signed by Jett Whitehead MD Number of Addenda: 0 Note Initiated On: 09/09/2018 10:29 AM Estimated Blood Loss: Estimated blood loss was minimal.
--- NOTE | 2018-09-09 11:37 | ROOR ---
Patient Name: Shalonda Rasmussen Procedure Date: 09/09/2018 10:29 AM Date of : 1975 Age: 43 Room: [facility] Gender: Female Note Status: Finalized Procedure: Colonoscopy Indications: Chronic diarrhea, Weight loss Providers: Jett Whitehead MD Referring MD: Crista Veliz NP Requesting Provider: Medicines: Monitored Anesthesia Care Complications: No immediate complications. Procedure: Pre-Anesthesia Assessment: - Prior to the procedure, a History and Physical was performed, and patient medications and allergies were reviewed. The patient is competent. The risks and benefits of the procedure and the sedation options and risks were discussed with the patient. All questions were answered and informed consent was obtained. Patient identification and proposed procedure were verified by the physician, the nurse and the anesthesiologist in the procedure room. Mental Status Examination: alert and oriented. Airway Examination: normal oropharyngeal airway and neck mobility. Respiratory Examination: clear to auscultation. CV Examination: normal. Prophylactic Antibiotics: The patient does not require prophylactic antibiotics. Prior Anticoagulants: The patient has taken no previous anticoagulant or antiplatelet agents. ASA Grade Assessment: II - A patient with mild systemic disease. After reviewing the risks and benefits, the patient was deemed in satisfactory condition to undergo the procedure. The anesthesia plan was to use monitored anesthesia care (MAC). Immediately prior to administration of medications, the patient was re-assessed for adequacy to receive sedatives. The heart rate, respiratory rate, oxygen saturations, blood pressure, adequacy of pulmonary ventilation, and response to care were monitored throughout the procedure. The physical status of the patient was re-assessed after the procedure. The Colonoscope was introduced through the anus and advanced to the terminal ileum, with identification of the appendiceal orifice and IC valve. The colonoscopy was performed without difficulty. The patient tolerated the procedure well. The quality of the bowel preparation was good. The terminal ileum, ileocecal valve, appendiceal orifice, and rectum were photographed. Scope insertion time was 3 minutes. Scope withdrawal time was 8 minutes. The total duration of the procedure was 11 minutes. Findings: The perianal and digital rectal examinations were normal. The terminal ileum appeared normal. Normal mucosa was found in the entire colon. Biopsies for histology were taken with a cold forceps from the right colon, left colon, transverse colon and rectosigmoid colon for evaluation of microscopic colitis. Verification of patient identification for the specimen was done by the physician and nurse using the patient's name, date and medical record number. Estimated blood loss was minimal. Scattered medium-mouthed diverticula were found from sigmoid to transverse colon. There was no evidence of diverticular bleeding. Non-bleeding external and internal hemorrhoids were found during retroflexion. The hemorrhoids were small. Impression: - The examined portion of the ileum was normal. - Normal mucosa in the entire examined colon. Biopsied. - Mild diverticulosis from sigmoid to transverse colon. There was no evidence of diverticular bleeding. - Non-bleeding external and internal hemorrhoids. Recommendation: - Patient has a contact number available for emergencies. The signs and symptoms of potential delayed complications were discussed with the patient. Return to normal activities tomorrow. Written discharge instructions were provided to the patient. - High fiber diet. - Continue present medications. - Await pathology results. - Repeat colonoscopy in 10 years for screening purposes. - Return to GI clinic in [facility] (address [address], [address], [place] [address]) in 4 -- 6 weeks. Please call GI clinic @ [phone] for apppointment date and time. - Return to primary care physician. Jett Whitehead MD Jett Whitehead MD 09/09/2018 11:37:02 AM Electronically signed by Jett Whitehead MD Number of Addenda: 0 Note Initiated On: 09/09/2018 10:29 AM Estimated Blood Loss: Estimated blood loss was minimal.
== END 2018-09-09 11:47 | disposition home or self-care (01) ==
LOC: M OPP 09:34
PROVIDERS: ATTEND Internal Medicine Gastroenterology
DX: K57.30 Diverticulosis of large intestine without perforation or abscess without bleeding (principal); K22.8 Other specified diseases of esophagus; K44.9 Diaphragmatic hernia without obstruction or gangrene; K29.70 Gastritis, unspecified, without bleeding; R10.13 Epigastric pain; R19.7 Diarrhea, unspecified; R63.4 Abnormal weight loss
CPT/HCPCS: 43239; 45380; 88305; J3010

== ENCOUNTER 2018-11-28 06:04 | Day surgery (SDC) | payer OTHER ==
[~2018-11-28] VITALS: Ht 167.6 cm; Wt 94.8 kg
[~2018-11-28 06:04] MED LIST changes: -BUTALB-ACETAMIN-CAFF; +BUTALB-ACETAMIN-CAFF PO; +LIDOCAINE 1% MDV 20ML VIAL SQ PRN; -LIDOCAINE 2% INJ 100 MG/5 ML SDV (FOR ANES.) As Ordered ONE; +LR 1,000 ML IV ONE; -NS 1,000 ML IV ONE; -PROPOFOL 500 MG/50 ML VIAL As Ordered ONE; +VITA50005 PO; -fentaNYL 100 MCG/2 ML INJECTION (J3010) As Ordered ONE
[2018-11-28 06:36] LABS: HEMATOCRIT 39.9 % (36.0-47.0); HEMOGLOBIN 13.2 g/dl (12.0-15.5); MEAN CORPUSCULAR HEMOGLOBIN 29.7 pg (27.0-33.0); MEAN CORPUSCULAR HGB CONC 33.1 g/dl (32.0-36.5); MEAN CORPUSCULAR VOLUME 89.9 fl (80.0-96.0); PLATELET COUNT, AUTOMATED 333 10^3/uL (150-450); RED BLOOD COUNT 4.44 10^6/uL (4.00-5.40)
[2018-11-28] MEDS ORDERED: dexameTHASONE 4 MG/ML 1ML VIAL (J1100) As Ordered ONE (07:10)
[2018-11-28] MEDS ORDERED: fentaNYL 100 MCG/2 ML INJECTION (J3010) As Ordered ONE ×2 (07:10→08:06)
[2018-11-28] MEDS ORDERED: ONDANSETRON 4MG/2ML VIAL (J2405) As Ordered ONE ×2 (07:10→08:55)
[2018-11-28] MEDS ORDERED: LIDOCAINE 2% INJ 100 MG/5 ML SDV (FOR ANES.) As Ordered ONE (07:10)
[2018-11-28] MEDS ORDERED: MIDAZOLAM INJ 2 MG/2 ML VIAL (J2250) As Ordered ONE (07:10)
[2018-11-28] MEDS ORDERED: ROCURONIUM BROMIDE 50 MG/5 ML VIAL As Ordered ONE (07:10)
[2018-11-28] MEDS ORDERED: PROPOFOL 200 MG/20 ML VIAL As Ordered ONE (07:10)
[2018-11-28] MEDS ORDERED: BUPIVACAINE/EPIN 0.25% 30 ML VIAL As Ordered ONE (07:16)
[2018-11-28] MEDS ORDERED: VASOPRESSIN INJ 20 UNITS/ML VIAL As Ordered ONE (07:17)
[2018-11-28] MEDS ORDERED: SCOPOLAMINE 1MG TRANSDERMAL PATCH TOP ONE (07:30)
[2018-11-28] MEDS ORDERED: ACETAMINOPHEN 1000MG 100ML IV BTL (OFIRMEV) (J0131 PER 10MG) As Ordered ONE (07:54)
[2018-11-28] MEDS ORDERED: SUGAMMADEX SODIUM 500 MG/5 ML VIAL (BRIDION) As Ordered ONE (08:06)
[2018-11-28] MEDS ORDERED: KETOROLAC 60 MG/2 ML VIAL (J1885) As Ordered ONE (08:19)
[2018-11-28] MEDS ORDERED: LR 1,000 ML IV SCH ×2 (08:44→09:15)
[2018-11-28] MEDS ORDERED: PERCOCET 5MG/325MG TAB PO PRN (08:45)
[2018-11-28] MEDS ORDERED: PERCOCET PO (08:49)
[2018-11-28] MEDS ORDERED: IBUP80TA PO (08:49)
[2018-11-28] MEDS: PERCOCET 5MG/325MG TAB PO PRN ×2 (08:55→09:25)
[2018-11-28] MEDS ORDERED: HYDROMORPHONE HCL 0.5 MG/ 0.5 ML SYRINGE (J1170 PER 1) As Ordered ONE ×2 (08:55→09:07)
[2018-11-28] MEDS: HYDROMORPHONE HCL 0.5 MG/ 0.5 ML SYRINGE (J1170 PER 1) IV PRN ×2 (09:00→09:10)
[2018-11-28] MEDS ORDERED: fentaNYL 100 MCG/2 ML INJECTION (J3010) IV PRN (09:15)
[2018-11-28] MEDS ORDERED: METOCLOPRAMIDE INJ 10MG/2ML VIAL (J2765) IV PRN (09:15)
[2018-11-28] MEDS ORDERED: ONDANSETRON 4MG/2ML VIAL (J2405) IV PRN (09:15)
[2018-11-28] MEDS ORDERED: METOCLOPRAMIDE INJ 10MG/2ML VIAL (J2765) As Ordered ONE (11:33)
[2018-11-28 12:15] VITALS: BP 119/79
[2018-11-29] MEDS ORDERED: IBUPROFEN 800 MG TAB PO SCH (17:00)
--- NOTE | 2018-12-01 10:01 | RO ---
DATE OF PROCEDURE: 11/28/2018 Shalonda is a 43-year-old female with an extensive history of pelvic surgery. She is status post hysterectomy and right salpingo-oophorectomy. She was found to have left ovarian or adnexal mass on ultrasound and with pelvic pain. At this point a decision was made to remove the left adnexal mass and possible oophorectomy. PREOPERATIVE DIAGNOSIS: 1. Left adnexal mass. 2. Pelvic pain. POSTOPERATIVE DIAGNOSIS: 1. Left adnexal mass. 2. Pelvic pain. 3. Dense pelvic adhesions. PROCEDURE: 1. Laparoscopic left oophorectomy 2. Extensive lysis of adhesions. ANESTHESIA: General. SURGEON: Dr. Boss COMPLICATIONS: None. ESTIMATED BLOOD LOSS: Less than 20 mL. SPECIMEN SENT TO THE LAB: Ovary and the left adnexal mass. PROCEDURE: After obtaining informed consent the patient was taken to the operating room where general anesthetic was found to be adequate. She was then draped and prepped usual sterile fashion in dorsal lithotomy position. At this point a sponge stick was placed the vagina for manipulation done the vagina for manipulation and a Ko catheter was placed in the bladder for drainage. I turned my attention to the abdomen where a 5 mm infraumbilical incision was made using the Veress needle the abdomen was insufflated with CO2 gas to approximately 3.5 liters a 5 mm [place] trocar was inserted under direct visualization. We then placed at 10 mm right lateral port under direct visualization. The patient was placed in steep Trendelenburg. The pelvis and abdomen inspected. Multiple adhesions were noted from her prior bowel resection. The left adnexa and ovarian cyst was noted was matted to the pelvic sidewall. At this point using the ELIZABETH Harmonic scalpel was a series of sharp and blunt dissection the infundibulopelvic ligament was identified and it was cauterized and cut. The adhesions were then removed carefully and the entire ovary as well as the cyst was removed. Pelvis was then copiously irrigated with normal saline. The cyst and ovary was removed via an Endopouch and was sent to pathology for final diagnosis. The rest of the pelvis was inspected and there was no evidence of any injuries noted. She did have some significant bowel adhesion as well as the appendix was also visualized and appeared to be normal. The these adhesions were not taken down as for fear that this might cause bowel injury given that the patient had a prior bowel resection the pelvis. The pelvis was cleared of all scar and adhesions. All instruments removed. The laparoscopic ports were closed using 0 Vicryl in the fascia and Dermabond on the skin 0.25% Marcaine was placed for postoperative pain. The patient tolerated procedure well. She was then transferred to recovery room in stable condition.
== END 2018-11-28 12:22 | disposition home or self-care (01) ==
LOC: M SDC 06:04
PROVIDERS: ATTEND Obstetrics & Gynecology
DX: N83.292 Other ovarian cyst, left side (principal); R10.2 Pelvic and perineal pain; K57.90 Diverticulosis of intestine, part unspecified, without perforation or abscess without bleeding; K21.9 Gastro-esophageal reflux disease without esophagitis; G43.909 Migraine, unspecified, not intractable, without status migrainosus; Z79.82 Long term (current) use of aspirin; Z79.899 Other long term (current) drug therapy
CPT/HCPCS: 36415; 58661; 85027; 86850; 86900; 86901; 88307; J0131; J0690; J1100; J1885; J2250; J2405; J2765; J3010

== ENCOUNTER 2019-05-12 11:07 | Emergency (ER) | payer MEDICAID, OTHER ==
[~2019-05-12] VITALS: Ht 167.6 cm; Wt 97.6 kg
[~2019-05-12 11:07] MED LIST changes: +IBUP80TA PO; -LIDOCAINE 1% MDV 20ML VIAL SQ PRN; -LR 1,000 ML IV ONE; +OMEP40CA97 PO; +PERCOCET PO; -RIZA10TA4; +RIZA10TA58; +ZONI100C17; -ZONI100C2
[2019-05-12 11:44] LABS: BASO # 0.1 10^3/uL (0.0-0.2); EOS # 0.2 10^3/uL (0.0-0.5); EOS % 2.6 % (0.0-3.0); HEMATOCRIT 40.1 % (36.0-47.0); HEMOGLOBIN 13.3 g/dl (12.0-15.5); LYMPH # 2.2 10^3/uL (1.5-5.0); LYMPH % 34.8 % (24.0-44.0); MEAN CORPUSCULAR HEMOGLOBIN 29.5 pg (27.0-33.0); MEAN CORPUSCULAR HGB CONC 33.2 g/dl (32.0-36.5); MEAN CORPUSCULAR VOLUME 88.9 fl (80.0-96.0); MONO # 0.4 10^3/uL (0.0-0.8); MONO % 6.1 % (0.0-5.0); NEUTROPHILS # 3.4 10^3/uL (1.5-8.5); NEUTROPHILS % 55.2 % (36.0-66.0); PLATELET COUNT, AUTOMATED 342 10^3/uL (150-450); RED BLOOD COUNT 4.51 10^6/uL (4.00-5.40); WHITE BLOOD COUNT 6.2 10^3/uL (4.0-10.0)
[2019-05-12] MEDS ORDERED: DULO1CAP6 (11:44)
[2019-05-12 12:09] LABS: BLOOD UREA NITROGEN 21 MG/DL (7-18); CALCIUM LEVEL 9.3 MG/DL (8.5-10.1); CARBON DIOXIDE LEVEL 24 MEQ/L (21-32); CHLORIDE LEVEL 108 MEQ/L (98-107); CK-MB VALUE MASS < 1.0 NG/ML (<3.6); CPK CREATINE PHOSPHOKINASE 96 U/L (26-192); GLOMERULAR FILTRATION RATE > 60.0 (>58); GLUCOSE, FASTING 111 MG/DL (70-100); MB/CK RELATIVE INDEX 1.04 (< OR =4); SODIUM LEVEL 138 MEQ/L (136-145); TROPONIN I < 0.02 NG/ML (< 0.10)
--- NOTE | 2019-05-12 12:30 | REP ---
CHEST, SINGLE VIEW: There is no evidence of acute infiltrate. No pleural effusion is seen. The heart is normal in size. The mediastinal silhouette is unremarkable. The visualized osseous structures are intact. IMPRESSION: No acute pulmonary disease. Electronically Signed by Jarvis Jin MD 05/12/2019 07:55 P
[2019-05-12] MEDS ORDERED: MORPHINE 4 MG/ML 1ML VIAL/SYRINGE (J2270) IV ONE (13:15)
[2019-05-12] MEDS ORDERED: ONDANSETRON 4MG/2ML VIAL (J2405) IV ONE (13:15)
--- NOTE | 2019-05-12 14:02 | REP ---
Bilateral lower extremity Duplex Doppler venous ultrasound: Real time compression and duplex Doppler interrogation of the bilateral lower extremity deep venous system is performed. Bilaterally, the common femoral, superficial femoral and popliteal veins are fully compressible with transducer pressure and demonstrate normal spontaneous and phasic flow, without evidence of deep venous thrombosis. Impression: No evidence of deep venous thrombosis of the bilateral lower extremity femoral popliteal venous system. Electronically Signed by Jarvis Jin MD 05/12/2019 01:53 P
[2019-05-12] MEDS: NS 1,000 ML IV SCH ×2 (14:12→19:36)
[2019-05-12] MEDS: GASTROGRAFIN SOLUTION 30ML PO SCH ×2 (14:13→14:29)
[2019-05-12 14:24] LABS: ALBUMIN 3.9 GM/DL (3.2-5.2); ALT/SGPT 23 U/L (12-78); BILIRUBIN,DIRECT 0.1 MG/DL (0.0-0.2); BILIRUBIN,TOTAL 0.4 MG/DL (0.2-1.0); LIPASE 104 U/L (73-393); TOTAL PROTEIN 7.2 GM/DL (6.4-8.2)
[2019-05-12] MEDS ORDERED: ISOVUE-370 76% 100ML VIAL (Q9967) As Ordered ONE (15:31)
--- NOTE | 2019-05-12 16:17 | REP ---
CT pulmonary angiogram: With IV contrast. History: Chest pain, rule out pulmonary embolus. Comparison studies: Comparison chest CT study with IV contrast is from July 19, 2014. Contrast dose: 100 mL of Isovue [address] technique: Helical scanning is acquired and overlapping 1.5 mm and contiguous 3 mm axial images are reformatted. In addition, maximum intensity projection and multiplanar re-formation images are generated in sagittal and coronal imaging projections. CT pulmonary angiographic findings: Preliminary digital entry level account representative radiograph is unremarkable. There is good opacification of the pulmonary arterial tree. There is no filling defect or vessel cutoff in the pulmonary artery branches to suggest pulmonary embolism. Thoracic aorta enhances homogeneously and is intact. There is no evidence of aneurysm or dissection. No pleural or pericardial effusion is seen. No hilar or mediastinal mass or adenopathy is observed. There is mild linear fibrosis in the left lower lobe region. Lung monroy are otherwise clear. No pulmonary nodule or mass lesion is observed. No infiltrate is seen. No extrathoracic mass or adenopathy is observed. Impression: No active disease. No CT evidence of pulmonary embolus. Minimal linear fibrosis left base. Otherwise negative. Electronically Signed by Aashish Garcia MD 05/12/2019 06:02 P
--- NOTE | 2019-05-12 16:20 | REP ---
CT abdomen and pelvis with IV but without oral contrast: History: Left lower quadrant pain. Comparison CT study: February 18, 2018. CT contrast dose: 100 mL of intravenous Isovue [address] findings: Digital preliminary steam room attendant radiographs demonstrate moderate stool in the distal colon and ascending colon. The liver and the spleen are normal in size and homogeneous in texture. There are clips in the gallbladder fossa. No pancreatic abnormality is noted. No adrenal lesion is seen. The kidneys enhance symmetrically and are morphologically intact. There is no evidence of intrarenal calculus or mass lesion. No hydronephrosis is seen. No retroperitoneal mass or adenopathy is observed. Normal caliber aorta is seen. No pelvic mass or adenopathy is seen. The uterus is surgically absent. There appears to be a suture line in the rectosigmoid colon suggesting previous sigmoid resection. Ileocecal valve is deep within the pelvis. A short normal appendix is seen. There are a few descending colonic diverticula without CT evidence of diverticulitis. There is no evidence of small or large bowel obstruction. Urinary bladder is unremarkable. There is moderate formed stool in the ascending colon, cecum and rectum. Impression: Status post left colon resection. Descending colonic diverticulosis. Moderate stool in the rectum and cecum. The gallbladder and uterus are surgically absent. Normal appendix. Electronically Signed by Aashish Garcia MD 05/12/2019 06:02 P
[2019-05-12 18:38] LABS: CK-MB VALUE MASS < 1.0 NG/ML (<3.6); CPK CREATINE PHOSPHOKINASE 78 U/L (26-192); MB/CK RELATIVE INDEX 1.28 (< OR =4); TROPONIN I < 0.02 NG/ML (< 0.10)
[2019-05-12 20:46] VITALS: BP 110/75
--- NOTE | 2019-05-14 06:18 | ECGEPIP ---
[facility] - ED Test Date: 2019-05-12 Pat Name: SONY FAIR Department: Room: - Gender: Female Tester Operator: gwen drake : 1975 Requested By: Bobby Gilliland Order Number: [id number] Reading MD: Justino Hennessy Measurements Intervals [place] Rate: 82 P: 28 PA: 189 QRS: -9 QRSD: 87 T: 10 QT: 367 QTc: 430 Interpretive Statements SINUS RHYTHM POOR R WAVE PROGRESSION NONSPECIFIC T WAVE ABNORMALITIES NO PRIORS FOR COMPARISON Electronically Signed on 05-14-2019 6:18:28 EST by Justino Hennessy
--- NOTE | 2019-05-14 06:32 | ECGEPIP ---
[facility] - ED Test Date: 2019-05-12 Pat Name: SONY FAIR Department: Room: - Gender: Female Network Mgr: kirstie : 1975 Requested By: LU Kuo Order Number: [id number] Reading MD: Justino Hennessy Measurements Intervals [place] Rate: 65 P: 21 ME: 215 QRS: -2 QRSD: 89 T: 13 QT: 399 QTc: 418 Interpretive Statements SINUS RHYTHM WITH FIRST DEGREE AV BLOCK POOR R WAVE PROGRESSION NONSPECIFIC T WAVE ABNORMALITIES SIMILAR TO PRIOR ON SAME DATE Electronically Signed on 05-14-2019 6:32:06 EST by Justino Hennessy
== END 2019-05-12 20:51 | disposition home or self-care (01) ==
LOC: M ED 11:07
DX: R07.9 Chest pain, unspecified (principal); R10.9 Unspecified abdominal pain; I44.0 Atrioventricular block, first degree; R50.9 Fever, unspecified; K57.30 Diverticulosis of large intestine without perforation or abscess without bleeding; K21.9 Gastro-esophageal reflux disease without esophagitis; G43.909 Migraine, unspecified, not intractable, without status migrainosus; Z90.49 Acquired absence of other specified parts of digestive tract; Z79.82 Long term (current) use of aspirin; Z79.899 Other long term (current) drug therapy; Z91.89 Other specified personal risk factors, not elsewhere classified
CPT/HCPCS: 71045; 71275; 74177; 80048; 80076; 81001; 82550; 82553; 83690; 85025; 87086; 93005; 93041; 93970; 94760; 96361; 96374; 96375; 99285; J2270; J2405; Q9963; Q9967

== ENCOUNTER → 2020-06-04 | Outpatient (CLI) | payer OTHER ==
[~2020-06-04] MED LIST changes: -AMIT25TA; +AMIT25TA17; -ASPI81TA85 PO; +ASPI81TA86 PO; +DULO1CAP6
[2020-06-04 09:23] LABS: HEMATOCRIT 38.9 % (36.0-47.0); HEMOGLOBIN 12.8 g/dl (12.0-15.5); MEAN CORPUSCULAR HEMOGLOBIN 29.9 pg (27.0-33.0); MEAN CORPUSCULAR HGB CONC 32.9 g/dl (32.0-36.5); MEAN CORPUSCULAR VOLUME 90.9 fl (80.0-96.0); PLATELET COUNT, AUTOMATED 300 10^3/uL (150-450); RED BLOOD COUNT 4.28 10^6/uL (4.00-5.40); WHITE BLOOD COUNT 5.9 10^3/uL (4.0-10.0)
[2020-06-04 09:56] LABS: ALBUMIN 3.8 GM/DL (3.2-5.2); ALT/SGPT 22 U/L (12-78); BILIRUBIN,TOTAL 0.4 MG/DL (0.2-1.0); BLOOD UREA NITROGEN 18 MG/DL (7-18); CALCIUM LEVEL 9.1 MG/DL (8.5-10.1); CARBON DIOXIDE LEVEL 24 MEQ/L (21-32); CHLORIDE LEVEL 107 MEQ/L (98-107); CHOLESTEROL LEVEL 208 MG/DL (<200); CREATININE FOR GFR 0.66 MG/DL (0.55-1.30); GLOMERULAR FILTRATION RATE > 60.0 (>58); GLUCOSE, FASTING 94 MG/DL (70-100); HDL CHOLESTEROL 65 MG/DL (>40); LDL CHOLESTEROL 124 MG/DL (<100); NON-HDL-C 143 MG/DL; POTASSIUM SERUM 4.3 MEQ/L (3.5-5.1); SODIUM LEVEL 138 MEQ/L (136-145); TRIGLYCERIDES LEVEL 93 MG/DL (<150)
--- NOTE | 2020-06-04 09:59 | REP ---
INDICATION: ANEMIA,FATIGUE, LAB 1ST EKG 2ND XR 3RD. COMPARISON: Comparison chest x-ray May 12, 2019. TECHNIQUE: Two views.. FINDINGS: The lungs are well inflated and free of infiltrate. The pleural angles are sharp. The heart size is normal. Pulmonary vasculature is not increased. No significant bony abnormality is seen. IMPRESSION: Negative chest x-ray. <Electronically signed by Mihai Garcia > 06/04/20 [id number]
--- NOTE | 2020-06-04 10:01 | REP ---
INDICATION: PAIN IN RIGHT KNEE. COMPARISON: Comparison right knee radiographs are from March 12, 2013.. TECHNIQUE: Five views of the right knee are provided. FINDINGS: Five views of the right knee demonstrate mild early lipping of the superior pole of the patella and the lateral pole of the patella consistent with early patellofemoral osteoarthritis. Bones, joints and soft tissues are otherwise unremarkable. No erosive changes seen. No fracture is noted.. . No opaque foreign body noted. IMPRESSION: Early patellar osteophytic spurring. Otherwise negative.. <Electronically signed by Mihai Garcia > 06/04/20 [id number]
[2020-06-04 11:03] LABS: HEMOGLOBIN A1c 5.3 %
--- NOTE | 2020-06-04 17:47 | ECGEPIP ---
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
[2020-06-06 11:47] LABS: TOTAL 25(OH) VITAMIN D 23.7 NG/ML (30.0-100.0)
== END ==
LOC: M LAB 08:33
PROVIDERS: ATTEND Family Medicine
DX: D64.9 Anemia, unspecified (principal); R53.83 Other fatigue; E03.9 Hypothyroidism, unspecified

== ENCOUNTER 2020-10-20 17:36 | Emergency (ER) | payer OTHER ==
[~2020-10-20] VITALS: Ht 167.6 cm; Wt 101.5 kg
[~2020-10-20 17:36] MED LIST changes: +OMEP40CA4 PO; -OMEP40CA97 PO
[2020-10-20] MEDS ORDERED: NS 1,000 ML IV ONE (21:00)
[2020-10-20] MEDS ORDERED: MORPHINE 4 MG/ML 1ML VIAL/SYRINGE (J2270) IV ONE (21:00)
[2020-10-20] MEDS ORDERED: ONDANSETRON 4MG/2ML VIAL IV ONE (21:00)
[2020-10-20 21:42] LABS: BASO # 0.1 10^3/uL (0.0-0.2); BASO % 0.7 % (0.0-1.0); EOS # 0.3 10^3/uL (0.0-0.5); EOS % 3.3 % (0.0-3.0); HEMATOCRIT 38.9 % (36.0-47.0); HEMOGLOBIN 12.8 g/dl (12.0-15.5); LYMPH # 2.8 10^3/uL (1.5-5.0); LYMPH % 26.6 % (24.0-44.0); MEAN CORPUSCULAR HEMOGLOBIN 30.4 pg (27.0-33.0); MEAN CORPUSCULAR HGB CONC 32.9 g/dl (32.0-36.5); MEAN CORPUSCULAR VOLUME 92.4 fl (80.0-96.0); MONO # 0.7 10^3/uL (0.0-0.8); MONO % 6.3 % (2.0-8.0); NEUTROPHILS # 6.4 10^3/uL (1.5-8.5); PLATELET COUNT, AUTOMATED 279 10^3/uL (150-450); RED BLOOD COUNT 4.21 10^6/uL (4.00-5.40); WHITE BLOOD COUNT 10.4 10^3/uL (4.0-10.0)
[2020-10-20] MEDS ORDERED: ISOVUE-370 76% 100ML VIAL As Ordered ONE (22:03)
[2020-10-20 22:17] LABS: ALBUMIN 3.6 GM/DL (3.2-5.2); BILIRUBIN,DIRECT 0.1 MG/DL (0.0-0.2); BILIRUBIN,TOTAL 0.4 MG/DL (0.2-1.0); TOTAL PROTEIN 7.1 GM/DL (6.4-8.2)
--- NOTE | 2020-10-20 23:21 | REPVR ---
PROCEDURE INFORMATION: Exam: CT Abdomen And Pelvis With Contrast Exam date and time: 10/20/2020 10:15 PM Age: 45 years old Clinical indication: Abdominal pain; Localized; Left lower quadrant (llq); Additional info: Llq abd pain, HX divertic with partial colectomy TECHNIQUE: Imaging protocol: Computed tomography of the abdomen and pelvis with contrast. Radiation optimization: All CT scans at this facility use at least one of these dose optimization techniques: automated exposure control; mA and/or kV adjustment per patient size (includes targeted exams where dose is matched to clinical indication); or iterative reconstruction. Contrast material: ISOVUE 370; Contrast volume: 100 ml; Contrast route: INTRAVENOUS (IV); COMPARISON: CT ABD/PEL W/IV ORAL CONTRAS 05/12/2019 3:28 PM FINDINGS: Lungs: Minimal bibasilar fibro-atelectatic change. Mediastinal space: Mild hiatal hernia. Liver: Normal. No mass. Gallbladder and bile ducts: Status post cholecystectomy. Pancreas: Normal. No ductal dilation. Spleen: Normal. No splenomegaly. Adrenal glands: Normal. No mass. Kidneys and ureters: Normal. No hydronephrosis. Stomach and bowel: Minimal colonic diverticulosis without diverticulitis. There has been prior colonic resection with anastomosis in the distal sigmoid. Appendix: There are no changes of appendicitis. A normal appendix is not seen. Intraperitoneal space: Unremarkable. No free air. No significant fluid collection. Vasculature: Unremarkable. No abdominal aortic aneurysm. Lymph nodes: Unremarkable. No enlarged lymph nodes. Urinary bladder: Unremarkable as visualized. Reproductive: Status post hysterectomy. Bones/joints: Unremarkable. No acute fracture. Soft tissues: Atrophy of the left psoas muscle and to a lesser degree the iliacus muscle. IMPRESSION: 1. Minimal colonic diverticulosis without diverticulitis. There has been prior partial resection of the distal sigmoid with anastomosis. 2. Atrophy of the left psoas and to a lesser degree left iliacus muscles which is similar to 05/12/2019. 3. Mild hiatal hernia. 4. There has been prior cholecystectomy and hysterectomy. 5. Otherwise negative CT abdomen/pelvis. Electronically signed by: Chuy Arredondo On 10/20/2020 23:21:29 PM
[2020-10-20] MEDS ORDERED: ONDA4TAB6 PO (23:57)
[2020-10-21 00:40] VITALS: BP 110/66
== END 2020-10-21 00:44 | disposition home or self-care (01) ==
LOC: M ED 20:31
DX: R10.32 Left lower quadrant pain (principal); R19.7 Diarrhea, unspecified; K57.30 Diverticulosis of large intestine without perforation or abscess without bleeding; Z90.49 Acquired absence of other specified parts of digestive tract; Z79.82 Long term (current) use of aspirin; Z79.899 Other long term (current) drug therapy; Z91.89 Other specified personal risk factors, not elsewhere classified
CPT/HCPCS: 74177; 80047; 80076; 81001; 83690; 85025; 96361; 96374; 96375; 99284; J2270; J2405; Q9967

== ENCOUNTER → 2020-12-29 | Outpatient (CLI) | payer OTHER ==
[~2020-12-29] MED LIST changes: +ONDA4TAB6 PO
--- NOTE | 2020-12-29 16:16 | REP ---
INDICATION: ROUTINE. COMPARISON: None. TECHNIQUE: PA and lateral FINDINGS: The superior mediastinal structures are midline. The cardiac silhouette is unremarkable in size, shape, and position. The diaphragmatic surfaces of the lungs are regular, and the costophrenic angles are clear. The pulmonary monroy are clear. The imaged osseous structures are intact. IMPRESSION: There is no acute cardiopulmonary disease. <Electronically signed by Nash Hopkins > 12/29/20 [id number]
[2020-12-29 16:21] LABS: HEMATOCRIT 40.4 % (36.0-47.0); HEMOGLOBIN 13.2 g/dl (12.0-15.5); MEAN CORPUSCULAR HEMOGLOBIN 29.9 pg (27.0-33.0); MEAN CORPUSCULAR HGB CONC 32.7 g/dl (32.0-36.5); MEAN CORPUSCULAR VOLUME 91.6 fl (80.0-96.0); PLATELET COUNT, AUTOMATED 338 10^3/uL (150-450); RED BLOOD COUNT 4.41 10^6/uL (4.00-5.40); WHITE BLOOD COUNT 6.5 10^3/uL (4.0-10.0)
[2020-12-29 16:54] LABS: ALBUMIN 3.5 GM/DL (3.2-5.2); ALT/SGPT 33 U/L (12-78); BILIRUBIN,TOTAL 0.3 MG/DL (0.2-1.0); BLOOD UREA NITROGEN 22 MG/DL (7-18); CALCIUM LEVEL 8.7 MG/DL (8.5-10.1); CARBON DIOXIDE LEVEL 26 MEQ/L (21-32); CHLORIDE LEVEL 107 MEQ/L (98-107); CHOLESTEROL LEVEL 229 MG/DL (<200); CREATININE FOR GFR 0.81 MG/DL (0.55-1.30); GLOMERULAR FILTRATION RATE > 60.0 (>58); GLUCOSE, FASTING 93 MG/DL (70-100); HDL CHOLESTEROL 53 MG/DL (>40); LDL CHOLESTEROL 124 MG/DL (<100); NON-HDL-C 176 MG/DL; POTASSIUM SERUM 4.1 MEQ/L (3.5-5.1); SODIUM LEVEL 141 MEQ/L (136-145); THYROID STIMULATING HORMONE 0.908 uIU/ML (0.358-3.740); TOTAL PROTEIN 7.6 GM/DL (6.4-8.2); TRIGLYCERIDES LEVEL 259 MG/DL (<150)
== END ==
LOC: M LAB 15:25
PROVIDERS: ATTEND Family Medicine
DX: I10 Essential (primary) hypertension (principal); R53.83 Other fatigue; E03.9 Hypothyroidism, unspecified

== ENCOUNTER → 2021-12-13 | Outpatient (CLI) | payer OTHER ==
[~2021-12-13] MED LIST changes: -ZONI100C17; +ZONI100C67
[2021-12-13 17:49] LABS: BASO # 0.1 10^3/uL (0.0-0.2); EOS # 0.2 10^3/uL (0.0-0.5); EOS % 4.1 % (0.0-3.0); HEMOGLOBIN 12.3 g/dl (12.0-15.5); LYMPH # 1.4 10^3/uL (1.5-5.0); MEAN CORPUSCULAR HEMOGLOBIN 29.4 pg (27.0-33.0); MEAN CORPUSCULAR HGB CONC 31.5 g/dl (32.0-36.5); MEAN CORPUSCULAR VOLUME 93.3 fl (80.0-96.0); MONO # 0.5 10^3/uL (0.0-0.8); MONO % 7.7 % (2.0-8.0); NEUTROPHILS # 3.7 10^3/uL (1.5-8.5); NEUTROPHILS % 62.7 % (36.0-66.0); PLATELET COUNT, AUTOMATED 324 10^3/uL (150-450); RED BLOOD COUNT 4.18 10^6/uL (4.00-5.40); WHITE BLOOD COUNT 5.8 10^3/uL (4.0-10.0)
[2021-12-13 18:22] LABS: ALBUMIN 3.8 GM/DL (3.2-5.2); ALT/SGPT 37 U/L (12-78); BILIRUBIN,TOTAL 0.3 MG/DL (0.2-1.0); BLOOD UREA NITROGEN 14 MG/DL (7-18); CALCIUM LEVEL 8.9 MG/DL (8.5-10.1); CARBON DIOXIDE LEVEL 25 MEQ/L (21-32); CHLORIDE LEVEL 107 MEQ/L (98-107); CREATININE FOR GFR 0.78 MG/DL (0.55-1.30); GLOMERULAR FILTRATION RATE > 60.0 (>58); GLUCOSE, FASTING 94 MG/DL (70-100); POTASSIUM SERUM 3.9 MEQ/L (3.5-5.1); RHEUMATOID FACTOR QUANT < 10.0 IU/ML (<15.0); SODIUM LEVEL 138 MEQ/L (136-145); TOTAL PROTEIN 7.3 GM/DL (6.4-8.2)
[2021-12-13 18:28] LABS: ERYTHROCYTE SEDIMENTATION RATE 11 mm/hr (0-20)
[2021-12-13 19:50] LABS: TOTAL 25(OH) VITAMIN D 22.6 NG/ML (30.0-100.0)
[2021-12-15 15:22] LABS: ANTINUCLEAR ANTIBODIES DIRECT Negative (Negative)
[2021-12-15 18:08] LABS: VITAMIN B12 LEVEL 254 PG/ML (247-911)
== END ==
LOC: M LAB 16:00
PROVIDERS: ATTEND Psychiatry & Neurology Neurology
DX: R51.9 Headache, unspecified (principal)

== ENCOUNTER → 2022-07-18 | Outpatient (CLI) | payer OTHER | LOC: M RAD 15:55 | PROVIDERS: ATTEND Family Medicine | DX: M25.511 Pain in right shoulder (principal); M25.512 Pain in left shoulder; M25.561 Pain in right knee; M25.562 Pain in left knee; M25.551 Pain in right hip ==

== ENCOUNTER → 2022-07-27 | Outpatient (CLI) | payer OTHER | LOC: M WHC 08:40 | PROVIDERS: ATTEND Family Medicine | DX: R10.9 Unspecified abdominal pain (principal) ==

== ENCOUNTER → 2022-10-06 | Outpatient (CLI) | payer OTHER ==
[2022-10-06 10:58] LABS: HEMATOCRIT 38.8 % (36.0-47.0); HEMOGLOBIN 12.6 g/dl (12.0-15.5); MEAN CORPUSCULAR HEMOGLOBIN 28.9 pg (27.0-33.0); MEAN CORPUSCULAR HGB CONC 32.5 g/dl (32.0-36.5); PLATELET COUNT, AUTOMATED 326 10^3/uL (150-450); RED BLOOD COUNT 4.36 10^6/uL (4.00-5.40); WHITE BLOOD COUNT 5.7 10^3/uL (4.0-10.0)
[2022-10-06 11:31] LABS: ALBUMIN 3.9 G/DL (3.2-5.2); ALKALINE PHOSPHATASE 86 U/L (46-116); ALT/SGPT 19 U/L (7.0-40); AST/SGOT 15 U/L (<34); BILIRUBIN,TOTAL 0.6 MG/DL (0.3-1.2); BLOOD UREA NITROGEN 15 MG/DL (9-23); CALCIUM LEVEL 9.7 MG/DL (8.5-10.1); CARBON DIOXIDE LEVEL 26 MMOL/L (20-31); CHLORIDE LEVEL 106 MMOL/L (98-107); CHOLESTEROL LEVEL 194 MG/DL (<200); CHOLESTEROL RISK RATIO 3.54 (<5); CREATININE FOR GFR 0.77 MG/DL (0.55-1.30); GLOMERULAR FILTRATION RATE > 60.0 (>58); GLUCOSE, FASTING 97 MG/DL (60-100); HDL CHOLESTEROL 54.7 MG/DL (>40); LDL CHOLESTEROL 116.5 MG/DL (<100); NON-HDL-C 139.3 MG/DL; POTASSIUM SERUM 4.5 MMOL/L (3.5-5.1); SODIUM LEVEL 141 MMOL/L (136-145); TOTAL PROTEIN 6.8 G/DL (5.7-8.2); TRIGLYCERIDES LEVEL 114 MG/DL (<150)
[2022-10-06 11:32] LABS: THYROID STIMULATING HORMONE 0.967 uIU/ML (0.55-4.78); TOTAL 25(OH) VITAMIN D 43.1 NG/ML (20.0-100.0)
[2022-10-06 11:42] LABS: HEMOGLOBIN A1c 5.3 % (4.0-6.0)
== END ==
LOC: M RAD 10:03
PROVIDERS: ATTEND Family Medicine
DX: R53.83 Other fatigue (principal); E03.9 Hypothyroidism, unspecified; D64.9 Anemia, unspecified; M54.50 Low back pain, unspecified; M54.30 Sciatica, unspecified side

== ENCOUNTER 2022-11-06 10:10 | Day surgery (SDC) | payer OTHER ==
[~2022-11-06] VITALS: Ht 167.6 cm; Wt 104.1 kg
[~2022-11-06 10:10] MED LIST changes: +AIMO70IN2; -AMIT25TA17; +AMIT25TA19; +ASPI-226 PO; +DULO1CAP6 PO; +ERGO500029; +NAPR-855 PO; +NS 1,000 ML IV ONE; +SIMV20TA22 PO; +TRAZ-257 PO; +ZONI100C67 PO
[2022-11-06] MEDS ORDERED: ONDANSETRON 4MG 2ML VIAL As Ordered ONE (12:06)
[2022-11-06] MEDS ORDERED: fentaNYL 100 MCG/2 ML INJECTION As Ordered ONE (12:16)
[2022-11-06] MEDS ORDERED: propofoL 200 MG/20 ML VIAL As Ordered ONE ×3 (12:16→12:35)
[2022-11-06] MEDS ORDERED: LIDOCAINE 2% 100MG/5ML SDV (FOR ANES.) As Ordered ONE (12:16)
[2022-11-06 12:41] VITALS: TEMP 97.4
[2022-11-06 13:00] VITALS: BP 131/82; O2SAT 96
== END 2022-11-06 13:00 | disposition home or self-care (01) ==
LOC: M OPP 10:10
PROVIDERS: ATTEND Internal Medicine Gastroenterology
DX: Z12.11 Encounter for screening for malignant neoplasm of colon (principal); Z80.0 Family history of malignant neoplasm of digestive organs; K57.30 Diverticulosis of large intestine without perforation or abscess without bleeding; K64.4 Residual hemorrhoidal skin tags; K64.8 Other hemorrhoids; K44.9 Diaphragmatic hernia without obstruction or gangrene; K21.00 Gastro-esophageal reflux disease with esophagitis, without bleeding; K31.89 Other diseases of stomach and duodenum; K29.70 Gastritis, unspecified, without bleeding; K22.89 Other specified disease of esophagus; Z79.02 Long term (current) use of antithrombotics/antiplatelets; Z79.1 Long term (current) use of non-steroidal anti-inflammatories (NSAID); Z79.620 Long term (current) use of immunosuppressive biologic; Z79.82 Long term (current) use of aspirin; Z79.899 Other long term (current) drug therapy; Z91.048 Other nonmedicinal substance allergy status
CPT/HCPCS: 43239; 45378; 88305; J2405; J3010

== ENCOUNTER → 2023-05-17 | Outpatient (CLI) | payer OTHER ==
[~2023-05-17] MED LIST changes: -NS 1,000 ML IV ONE
== END ==
LOC: M RAD 09:36
PROVIDERS: ATTEND Family Medicine
DX: R10.9 Unspecified abdominal pain (principal); K76.0 Fatty (change of) liver, not elsewhere classified

== ENCOUNTER 2023-05-26 07:42 | Emergency (ER) | payer OTHER ==
[~2023-05-26] VITALS: Ht 167.6 cm; Wt 93.2 kg
[2023-05-26 07:54] VITALS: BP 141/84; TEMP 97.5; O2SAT 99
== END 2023-05-26 08:09 | disposition left against medical advice (07) ==
LOC: M ED 07:42 → EDBD 07:42 → M ED 08:09
DX: Z53.21 Procedure and treatment not carried out due to patient leaving prior to being seen by health care provider (principal)

== ENCOUNTER → 2023-07-19 | Outpatient (CLI) | payer OTHER ==
[~2023-07-19] MED LIST changes: +GABA600T4 PO; +TAMS1CAP17 PO
[2023-07-19 07:55] LABS: HEMATOCRIT 35.8 % (36.0-47.0); HEMOGLOBIN 11.9 g/dl (12.0-15.5); MEAN CORPUSCULAR HEMOGLOBIN 29.6 pg (27.0-33.0); MEAN CORPUSCULAR HGB CONC 33.2 g/dl (32.0-36.5); MEAN CORPUSCULAR VOLUME 89.1 fl (80.0-96.0); PLATELET COUNT, AUTOMATED 292 10^3/uL (150-450); RED BLOOD COUNT 4.02 10^6/uL (4.00-5.40)
[2023-07-19 08:05] LABS: APPEARANCE, URINE HAZY (CLEAR); BACTERIA, URINE AUTO NEGATIVE (NEGATIVE); BILIRUBIN, URINE AUTO NEGATIVE (NEGATIVE); BLOOD, URINE BLOOD NEGATIVE (NEGATIVE); COLOR, URINE YELLOW (YELLOW); GLUCOSE, URINE (UA) AUTO NEGATIVE (NEGATIVE); KETONE, URINE AUTO NEGATIVE (NEGATIVE); LEUKOCYTE ESTERASE, URINE AUTO NEGATIVE (NEGATIVE); MUCUS, URINE SMALL (NEGATIVE); NITRITE, URINE AUTO NEGATIVE (NEGATIVE); PROTEIN, URINE AUTO NEGATIVE (NEGATIVE); RBC, URINE AUTO 0 /HPF (0-3); SPECIFIC GRAVITY URINE AUTO 1.019 (1.002-1.035); SQUAMOUS EPITHELIAL CELL UR AU 6 /HPF (0-6); UROBILINOGEN, URINE AUTO 0.2 mg/dL (0.0-2.0); WBC, URINE AUTO 2 /HPF (0-3)
[2023-07-19 08:25] LABS: CALCIUM LEVEL 9.4 MG/DL (8.5-10.1); CREATININE FOR GFR 1.07 MG/DL (0.55-1.30); GLOMERULAR FILTRATION RATE 58.3 (>58); POTASSIUM SERUM 4.1 MMOL/L (3.5-5.1)
[2023-07-19 08:26] LABS: PTH INTACT 28.8 PG/ML (18.5-88.0)
== END ==
LOC: M RAD 06:35
PROVIDERS: ATTEND Physician Assistant
DX: Z01.818 Encounter for other preprocedural examination (principal); N20.0 Calculus of kidney; I25.2 Old myocardial infarction

== ENCOUNTER → 2023-07-22 | Outpatient (CLI) | payer OTHER | LOC: M EKG 15:39 | PROVIDERS: ATTEND Family Medicine | DX: R94.31 Abnormal electrocardiogram [ECG] [EKG] (principal) ==

== ENCOUNTER → 2023-08-13 | Outpatient (REF) | payer OTHER ==
[~2023-08-13] MED LIST changes: +ONDA-282 PO; -ONDA4TAB6 PO
== END ==
LOC: M SMT 15:57
PROVIDERS: ATTEND Urology
DX: Z01.818 Encounter for other preprocedural examination (principal); N20.0 Calculus of kidney; N39.0 Urinary tract infection, site not specified

== ENCOUNTER 2023-08-23 10:01 | Day surgery (SDC) | payer OTHER ==
[~2023-08-23] VITALS: Ht 167.6 cm; Wt 105.0 kg
[~2023-08-23 10:01] MED LIST changes: +ETOMIDATE INJ 20MG/10ML VIAL As Ordered ONE; +LIDOCAINE 2% 100MG/5ML SDV (FOR ANES.) As Ordered ONE; +MIDAZOLAM INJ 2MG/2ML VIAL As Ordered ONE; +ONDANSETRON 4MG 2ML VIAL As Ordered ONE; +ePHEDrine SULFATE 25 MG/5 ML(5MG/ML) SYRINGE As Ordered ONE; +fentaNYL 100 MCG/2 ML INJECTION As Ordered ONE; +propofoL 200 MG/20 ML VIAL As Ordered ONE
[2023-08-23] MEDS: LR 1,000 ML IV SCH (10:36)
[2023-08-23] MEDS: SCOPOLAMINE 1MG TRANSDERMAL PATCH TOP ONE (11:25)
[2023-08-23] MEDS ORDERED: ACETAMINOPHEN 1000MG 100ML IV BAG As Ordered ONE (12:16)
[2023-08-23] MEDS: ceFAZolin SOD 2 GM in IV 1 EA IV ONE (12:31)
[2023-08-23] MEDS: ISOVUE-300 61% 100ML VIAL As Ordered ONE (12:49)
[2023-08-23] MEDS ORDERED: fentaNYL 100 MCG/2 ML INJECTION IV PRN (13:00)
[2023-08-23] MEDS ORDERED: ONDANSETRON 4MG 2ML VIAL IV PRN (13:00)
[2023-08-23] MEDS ORDERED: oxyCODONE 5MG TAB PO PRN (13:00)
[2023-08-23] MEDS ORDERED: PERCOCET 5MG/325MG TAB PO PRN (13:35)
[2023-08-23 13:51] VITALS: BP 159/80; TEMP 97.8; O2SAT 97
== END 2023-08-23 14:09 | disposition home or self-care (01) ==
LOC: M SDC 10:01
PROVIDERS: ATTEND Urology
DX: N20.1 Calculus of ureter (principal); I25.2 Old myocardial infarction; E78.00 Pure hypercholesterolemia, unspecified; Z79.899 Other long term (current) drug therapy; Z79.82 Long term (current) use of aspirin; Z86.73 Personal history of transient ischemic attack (TIA), and cerebral infarction without residual deficits; Z88.8 Allergy status to other drugs, medicaments and biological substances; Z90.710 Acquired absence of both cervix and uterus; K58.9 Irritable bowel syndrome, unspecified; Z90.49 Acquired absence of other specified parts of digestive tract
CPT/HCPCS: 52356; 74420; J0131; J0690; J1100; J2250; J2405; J3010; Q9967

== ENCOUNTER → 2023-08-27 | Outpatient (CLI) | payer OTHER ==
[~2023-08-27] MED LIST changes: -ETOMIDATE INJ 20MG/10ML VIAL As Ordered ONE; -LIDOCAINE 2% 100MG/5ML SDV (FOR ANES.) As Ordered ONE; -MIDAZOLAM INJ 2MG/2ML VIAL As Ordered ONE; -ONDANSETRON 4MG 2ML VIAL As Ordered ONE; -ePHEDrine SULFATE 25 MG/5 ML(5MG/ML) SYRINGE As Ordered ONE; -fentaNYL 100 MCG/2 ML INJECTION As Ordered ONE; -propofoL 200 MG/20 ML VIAL As Ordered ONE
[2023-08-27 08:32] LABS: HEMATOCRIT 36.4 % (36.0-47.0); HEMOGLOBIN 12.1 g/dl (12.0-15.5); MEAN CORPUSCULAR HEMOGLOBIN 29.4 pg (27.0-33.0); MEAN CORPUSCULAR HGB CONC 33.2 g/dl (32.0-36.5); MEAN CORPUSCULAR VOLUME 88.3 fl (80.0-96.0); PLATELET COUNT, AUTOMATED 318 10^3/uL (150-450); RED BLOOD COUNT 4.12 10^6/uL (4.00-5.40)
[2023-08-27 09:00] LABS: URIC ACID 5.6 MG/DL (3.1-7.8)
[2023-08-27 09:03] LABS: ALBUMIN 3.7 G/DL (3.2-5.2); ALKALINE PHOSPHATASE 106 U/L (46-116); ALT/SGPT 17 U/L (7.0-40); AST/SGOT 15 U/L (<34); BILIRUBIN,TOTAL 0.6 MG/DL (0.3-1.2); BLOOD UREA NITROGEN 23 MG/DL (9-23); CALCIUM LEVEL 9.3 MG/DL (8.5-10.1); CARBON DIOXIDE LEVEL 25 MMOL/L (20-31); CHLORIDE LEVEL 107 MMOL/L (98-107); CHOLESTEROL LEVEL 155 MG/DL (<200); CHOLESTEROL RISK RATIO 3.27 (<5); CREATININE FOR GFR 0.99 MG/DL (0.55-1.30); GLOMERULAR FILTRATION RATE > 60.0 (>58); GLUCOSE, FASTING 101 MG/DL (60-100); HDL CHOLESTEROL 47.4 MG/DL (>40); LDL CHOLESTEROL 72.6 MG/DL (<100); NON-HDL-C 107.6 MG/DL; POTASSIUM SERUM 4.3 MMOL/L (3.5-5.1); SODIUM LEVEL 138 MMOL/L (136-145); TOTAL PROTEIN 6.7 G/DL (5.7-8.2); TRIGLYCERIDES LEVEL 175 MG/DL (<150)
[2023-08-27 09:04] LABS: THYROID STIMULATING HORMONE 0.872 uIU/ML (0.55-4.78)
[2023-08-27 09:05] LABS: TOTAL 25(OH) VITAMIN D 35.2 NG/ML (20.0-100.0)
[2023-08-27 09:15] LABS: HEMOGLOBIN A1c 4.9 % (4.0-6.0)
== END ==
LOC: M RAD 07:13
PROVIDERS: ATTEND Family Medicine
DX: R10.32 Left lower quadrant pain (principal); I10 Essential (primary) hypertension; R53.83 Other fatigue; E03.9 Hypothyroidism, unspecified; N20.0 Calculus of kidney; M20.42 Other hammer toe(s) (acquired), left foot; M77.32 Calcaneal spur, left foot

== ENCOUNTER → 2023-09-04 | Outpatient (CLI) | payer OTHER | LOC: M WHC 11:07 | PROVIDERS: ATTEND Family Medicine | DX: Z12.31 Encounter for screening mammogram for malignant neoplasm of breast (principal) ==

== ENCOUNTER → 2023-09-09 | Outpatient (CLI) | payer OTHER | LOC: M WHC 13:14 | PROVIDERS: ATTEND Family Medicine | DX: R92.8 Other abnormal and inconclusive findings on diagnostic imaging of breast (principal) ==

== ENCOUNTER → 2023-10-01 | Outpatient (CLI) | payer OTHER | LOC: M RAD 14:55 | PROVIDERS: ATTEND Urology | DX: N20.0 Calculus of kidney (principal); K44.9 Diaphragmatic hernia without obstruction or gangrene; K57.30 Diverticulosis of large intestine without perforation or abscess without bleeding ==

== ENCOUNTER → 2023-11-07 | Outpatient (CLI) | payer OTHER ==
[~2023-11-07] MED LIST changes: +ALLO100T PO; +DIVA500T94 PO; +GABA-1490 PO; -GABA600T4 PO; +LEVOTAB10 PO; +OMEP40CA5 PO; +POTA10808 PO; +VONO20TA PO
== END ==
LOC: M SOG 07:54
PROVIDERS: ATTEND Orthopaedic Surgery
DX: Z53.9 Procedure and treatment not carried out, unspecified reason (principal)

== ENCOUNTER → 2023-11-09 | Outpatient (CLI) | payer OTHER ==
[2023-11-09 10:58] LABS: HEMATOCRIT 37.1 % (36.0-47.0); HEMOGLOBIN 12.3 g/dl (12.0-15.5); MEAN CORPUSCULAR HEMOGLOBIN 29.1 pg (27.0-33.0); MEAN CORPUSCULAR HGB CONC 33.2 g/dl (32.0-36.5); MEAN CORPUSCULAR VOLUME 87.7 fl (80.0-96.0); PLATELET COUNT, AUTOMATED 293 10^3/uL (150-450); RED BLOOD COUNT 4.23 10^6/uL (4.00-5.40); WHITE BLOOD COUNT 8.7 10^3/uL (4.0-10.0)
[2023-11-09 11:08] LABS: INR 1.1; PROTHROMBIN TIME 13.8 SECONDS (12.5-14.5)
[2023-11-09 11:14] LABS: HEMOGLOBIN A1c 5.5 % (4.0-6.0)
[2023-11-09 11:22] LABS: ALBUMIN 3.8 G/DL (3.2-5.2); ALKALINE PHOSPHATASE 109 U/L (46-116); ALT/SGPT 20 U/L (7.0-40); AST/SGOT 18 U/L (<34); BILIRUBIN,TOTAL 0.6 MG/DL (0.3-1.2); BLOOD UREA NITROGEN 21 MG/DL (9-23); CALCIUM LEVEL 9.6 MG/DL (8.5-10.1); CARBON DIOXIDE LEVEL 27 MMOL/L (20-31); CHLORIDE LEVEL 109 MMOL/L (98-107); CHOLESTEROL LEVEL 181 MG/DL (<200); CHOLESTEROL RISK RATIO 3.56 (<5); CREATININE FOR GFR 0.94 MG/DL (0.55-1.30); GLOMERULAR FILTRATION RATE > 60.0 (>58); GLUCOSE, FASTING 96 MG/DL (60-100); HDL CHOLESTEROL 50.8 MG/DL (>40); LDL CHOLESTEROL 102.8 MG/DL (<100); NON-HDL-C 130.2 MG/DL; POTASSIUM SERUM 4.1 MMOL/L (3.5-5.1); SODIUM LEVEL 142 MMOL/L (136-145); TRIGLYCERIDES LEVEL 137 MG/DL (<150)
[2023-11-09 11:26] LABS: THYROID STIMULATING HORMONE 0.962 uIU/ML (0.55-4.78)
== END ==
LOC: M LAB 09:59
PROVIDERS: ATTEND Family Medicine
DX: Z01.818 Encounter for other preprocedural examination (principal); R53.83 Other fatigue; K42.9 Umbilical hernia without obstruction or gangrene; I10 Essential (primary) hypertension

== ENCOUNTER 2023-11-22 08:09 | Day surgery (SDC) | payer OTHER ==
[2023-11-20] MEDS: ceFAZolin SOD 2 GM in IV 1 EA IV ONE (10:34)
[~2023-11-22] VITALS: Ht 167.6 cm; Wt 106.6 kg
[~2023-11-22 08:09] MED LIST changes: -CYCL5TAB PO; +CYCL5TAB4 PO; -POTA10808 PO; +POTA10809 PO
[2023-11-22] MEDS ORDERED: LR 1,000 ML IV SCH (08:40)
[2023-11-22] MEDS ORDERED: CelecoXIB 400 MG CAP PO ONE (09:00)
[2023-11-22] MEDS: CelecoXIB 400 MG CAP PO ONE (09:12)
[2023-11-22] MEDS: SCOPOLAMINE 1MG TRANSDERMAL PATCH TOP ONE (09:25)
[2023-11-22] MEDS: ceFAZolin SOD 2 GM in IV 1 EA IV ONE (10:34)
[2023-11-22] MEDS ORDERED: SUGAMMADEX SODIUM 500 MG/5 ML VIAL (BRIDION) As Ordered ONE (11:49)
[2023-11-22] MEDS ORDERED: dexmedeTOMIDine (4MCG/ML)200MCG/50ML BTL (PRECEDEX) As Ordered ONE (11:49)
[2023-11-22] MEDS ORDERED: ACETAMINOPHEN 1000MG/100ML IV BAG As Ordered ONE (11:49)
[2023-11-22] MEDS ORDERED: ONDANSETRON 4MG 2ML VIAL As Ordered ONE (11:49)
[2023-11-22] MEDS ORDERED: METOCLOPRAMIDE INJ 10MG/2ML VIAL As Ordered ONE (11:49)
[2023-11-22] MEDS ORDERED: ROCURONIUM BROMIDE 50MG/5ML VIAL As Ordered ONE (11:49)
[2023-11-22] MEDS ORDERED: MIDAZOLAM INJ 2MG/2ML VIAL As Ordered ONE (11:49)
[2023-11-22] MEDS ORDERED: KETOROLAC 60MG 2ML VIAL As Ordered ONE (11:49)
[2023-11-22] MEDS ORDERED: LIDOCAINE 2% 100MG/5ML SDV (FOR ANES.) As Ordered ONE (11:49)
[2023-11-22] MEDS ORDERED: propofoL 200 MG/20 ML VIAL As Ordered ONE (11:49)
[2023-11-22] MEDS ORDERED: fentaNYL 250 MCG/5 ML INJECTION As Ordered ONE (11:49)
[2023-11-22] MEDS ORDERED: ePHEDrine SULFATE 25 MG/5 ML(5MG/ML) SYRINGE As Ordered ONE (11:49)
[2023-11-22] MEDS ORDERED: PHENYLephrine 500MCG 5ML (100MCG/ML) SYRINGE As Ordered ONE (11:49)
[2023-11-22] MEDS: LIDOCAINE 1% SDV 30ML VIAL As Ordered ONE (13:30)
[2023-11-22] MEDS ORDERED: DESFLURANE 240 ML INHALANT As Ordered ONE (13:31)
[2023-11-22] MEDS ORDERED: fentaNYL 100 MCG/2 ML INJECTION IV PRN (13:55)
[2023-11-22] MEDS ORDERED: ONDANSETRON 4MG 2ML VIAL IV PRN (13:55)
[2023-11-22] MEDS: oxyCODONE 5MG TAB PO PRN (14:14)
[2023-11-22] MEDS: HYDROMORPHONE HCL 0.5 MG/ 0.5 ML SYRINGE IV PRN (14:14)
[2023-11-22] MEDS ORDERED: NORCO, ANEXSIA 5/325MG TABLET (HYDROcodone/ACETAMINOPHEN) PO PRN ×2 (14:30)
[2023-11-22 15:54] VITALS: BP 139/73; TEMP 97.4; O2SAT 99
[2023-11-22] MEDS ORDERED: KETOROLAC 30 MG/ML 1ML VIAL IV SCH (20:00)
== END 2023-11-22 16:33 | disposition home or self-care (01) ==
LOC: M SDC 08:09
PROVIDERS: ATTEND Surgery
DX: K43.2 Incisional hernia without obstruction or gangrene (principal); K42.9 Umbilical hernia without obstruction or gangrene; I25.2 Old myocardial infarction; E78.5 Hyperlipidemia, unspecified; K58.8 Other irritable bowel syndrome; K21.9 Gastro-esophageal reflux disease without esophagitis; Z79.52 Long term (current) use of systemic steroids; Z79.899 Other long term (current) drug therapy; Z79.82 Long term (current) use of aspirin; K57.92 Diverticulitis of intestine, part unspecified, without perforation or abscess without bleeding; G43.909 Migraine, unspecified, not intractable, without status migrainosus; Z86.73 Personal history of transient ischemic attack (TIA), and cerebral infarction without residual deficits
CPT/HCPCS: 49614; 88300; C1781; C9290; J0131; J0665; J0690; J1100; J1170; J1885; J2250; J2371; J2405; J2765; J3010; S2900

== ENCOUNTER → 2023-11-25 | Outpatient (CLI) | payer OTHER ==
[~2023-11-25] MED LIST changes: +CYCL5TAB PO; -CYCL5TAB4 PO; +POTA10808 PO; -POTA10809 PO
== END ==
LOC: M SOG 07:26
PROVIDERS: ATTEND Physician Assistant
DX: M25.572 Pain in left ankle and joints of left foot (principal); Z53.9 Procedure and treatment not carried out, unspecified reason

== ENCOUNTER → 2023-11-28 | Outpatient (CLI) | payer OTHER | LOC: M PAIN 08:00 | PROVIDERS: ATTEND Nurse Practitioner Family | DX: M51.16 Intervertebral disc disorders with radiculopathy, lumbar region (principal); G89.29 Other chronic pain; K21.9 Gastro-esophageal reflux disease without esophagitis; E55.9 Vitamin D deficiency, unspecified; E66.9 Obesity, unspecified; G43.709 Chronic migraine without aura, not intractable, without status migrainosus; Z68.38 Body mass index [BMI] 38.0-38.9, adult; Z79.82 Long term (current) use of aspirin; Z79.1 Long term (current) use of non-steroidal anti-inflammatories (NSAID); Z79.899 Other long term (current) drug therapy; Z88.8 Allergy status to other drugs, medicaments and biological substances; Z91.048 Other nonmedicinal substance allergy status ==

== ENCOUNTER → 2023-12-09 | Outpatient (CLI) | payer OTHER | LOC: M SOG 07:25 | PROVIDERS: ATTEND Physician Assistant | DX: M25.572 Pain in left ankle and joints of left foot (principal); Z53.9 Procedure and treatment not carried out, unspecified reason ==

== ENCOUNTER → 2023-12-30 | Outpatient (CLI) | payer OTHER | LOC: M SOG 07:30 | PROVIDERS: ATTEND Physician Assistant | DX: M25.572 Pain in left ankle and joints of left foot (principal); Z53.9 Procedure and treatment not carried out, unspecified reason ==

== ENCOUNTER → 2024-01-07 | Outpatient (CLI) | payer OTHER | LOC: M SOG 07:20 | PROVIDERS: ATTEND Physician Assistant | DX: M25.572 Pain in left ankle and joints of left foot (principal); M77.32 Calcaneal spur, left foot ==

== ENCOUNTER → 2024-01-10 | Outpatient (CLI) | payer OTHER ==
[~2024-01-10] MED LIST changes: +ISOVUE-M 300 61% 15ML VIAL As Ordered ONE; +LIDOCAINE 1% SDV 30ML VIAL As Ordered ONE; +dexAMETHasone 10MG/1ML VIAL PRES.FREE As Ordered ONE; +diazePAM 5MG TABLET As Ordered ONE; +oxyCODONE 5MG TAB As Ordered ONE
== END ==
LOC: M PAIN 12:45
PROVIDERS: ATTEND Anesthesiology
DX: M51.16 Intervertebral disc disorders with radiculopathy, lumbar region (principal); G89.29 Other chronic pain; K21.9 Gastro-esophageal reflux disease without esophagitis; E83.42 Hypomagnesemia; E55.9 Vitamin D deficiency, unspecified; E66.9 Obesity, unspecified; G43.709 Chronic migraine without aura, not intractable, without status migrainosus; Z79.82 Long term (current) use of aspirin; Z79.899 Other long term (current) drug therapy; Z79.1 Long term (current) use of non-steroidal anti-inflammatories (NSAID); Z88.8 Allergy status to other drugs, medicaments and biological substances; Z91.048 Other nonmedicinal substance allergy status
CPT/HCPCS: 62323; J1100; Q9967

== ENCOUNTER → 2024-01-25 | Outpatient (CLI) | payer OTHER ==
[~2024-01-25] MED LIST changes: -CYCL5TAB PO; +CYCL5TAB4 PO; -ISOVUE-M 300 61% 15ML VIAL As Ordered ONE; -LIDOCAINE 1% SDV 30ML VIAL As Ordered ONE; -dexAMETHasone 10MG/1ML VIAL PRES.FREE As Ordered ONE; -diazePAM 5MG TABLET As Ordered ONE; -oxyCODONE 5MG TAB As Ordered ONE
[2024-01-28 02:41] LABS: TISSUE TRANSGLUTAMINASE IgA < 1.0 U/mL (<15.0); TISSUE TRANSGLUTAMINASE IgG < 1.0 U/mL (<15.0)
== END ==
LOC: M LAB 09:24
PROVIDERS: ATTEND Student in an Organized Health Care Education/Training Program
DX: K21.00 Gastro-esophageal reflux disease with esophagitis, without bleeding (principal); K44.9 Diaphragmatic hernia without obstruction or gangrene; K57.30 Diverticulosis of large intestine without perforation or abscess without bleeding; Z80.0 Family history of malignant neoplasm of digestive organs; K59.00 Constipation, unspecified

== ENCOUNTER → 2024-01-25 | Outpatient (CLI) | payer OTHER ==
[2024-01-25 10:38] LABS: HEMATOCRIT 38.5 % (36.0-47.0); HEMOGLOBIN 12.7 g/dl (12.0-15.5); MEAN CORPUSCULAR HEMOGLOBIN 29.3 pg (27.0-33.0); MEAN CORPUSCULAR VOLUME 88.9 fl (80.0-96.0); PLATELET COUNT, AUTOMATED 347 10^3/uL (150-450); RED BLOOD COUNT 4.33 10^6/uL (4.00-5.40); WHITE BLOOD COUNT 5.6 10^3/uL (4.0-10.0)
[2024-01-25 10:59] LABS: HEMOGLOBIN A1c 5.5 % (4.0-6.0)
[2024-01-25 11:08] LABS: ALBUMIN 3.6 G/DL (3.2-5.2); ALKALINE PHOSPHATASE 102 U/L (35-104); ALT/SGPT 23 U/L (7.0-40); AST/SGOT 20 U/L (<34); BILIRUBIN,TOTAL 0.5 MG/DL (0.3-1.2); BLOOD UREA NITROGEN 24 MG/DL (9-23); CALCIUM LEVEL 9.8 MG/DL (8.5-10.1); CARBON DIOXIDE LEVEL 26 MMOL/L (20-31); CHLORIDE LEVEL 108 MMOL/L (98-107); CHOLESTEROL LEVEL 209 MG/DL (<200); CHOLESTEROL RISK RATIO 3.92 (<5); CREATININE FOR GFR 0.85 MG/DL (0.55-1.30); GLOMERULAR FILTRATION RATE > 60.0 (>58); GLUCOSE, FASTING 97 MG/DL (60-100); HDL CHOLESTEROL 53.2 MG/DL (>40); LDL CHOLESTEROL 118.2 MG/DL (<100); NON-HDL-C 155.8 MG/DL; POTASSIUM SERUM 3.8 MMOL/L (3.5-5.1); SODIUM LEVEL 141 MMOL/L (136-145); TOTAL PROTEIN 6.9 G/DL (5.7-8.2); TRIGLYCERIDES LEVEL 188 MG/DL (<150)
[2024-01-25 11:11] LABS: THYROID STIMULATING HORMONE 0.754 uIU/ML (0.55-4.78)
== END ==
LOC: M RAD 09:19
PROVIDERS: ATTEND Family Medicine
DX: I10 Essential (primary) hypertension (principal); E11.9 Type 2 diabetes mellitus without complications; R53.83 Other fatigue; E03.9 Hypothyroidism, unspecified; N20.0 Calculus of kidney

== ENCOUNTER → 2024-02-11 | Outpatient (CLI) | payer OTHER ==
[~2024-02-11] MED LIST changes: -POTA10808 PO; +POTA10809 PO
== END ==
LOC: M PAIN 16:00
PROVIDERS: ATTEND Nurse Practitioner Family
DX: M51.16 Intervertebral disc disorders with radiculopathy, lumbar region (principal); G89.29 Other chronic pain; K21.9 Gastro-esophageal reflux disease without esophagitis; E55.9 Vitamin D deficiency, unspecified; E66.9 Obesity, unspecified; G43.709 Chronic migraine without aura, not intractable, without status migrainosus; Z88.8 Allergy status to other drugs, medicaments and biological substances; Z91.048 Other nonmedicinal substance allergy status; Z79.82 Long term (current) use of aspirin; Z68.39 Body mass index [BMI] 39.0-39.9, adult; Z79.1 Long term (current) use of non-steroidal anti-inflammatories (NSAID); Z79.899 Other long term (current) drug therapy

== ENCOUNTER → 2024-03-31 | Outpatient (CLI) | payer OTHER | LOC: M SOG 07:56 | PROVIDERS: ATTEND Physician Assistant | DX: M25.561 Pain in right knee (principal); M25.562 Pain in left knee; Z53.9 Procedure and treatment not carried out, unspecified reason ==

== ENCOUNTER → 2024-04-15 | Outpatient (CLI) | payer OTHER | LOC: M SOG 07:50 | PROVIDERS: ATTEND Physician Assistant | DX: M25.561 Pain in right knee (principal); M25.562 Pain in left knee; Z53.9 Procedure and treatment not carried out, unspecified reason ==

== ENCOUNTER → 2024-05-05 | Outpatient (CLI) | payer OTHER | LOC: M SOG 07:48 | PROVIDERS: ATTEND Physician Assistant | DX: M25.561 Pain in right knee (principal); M25.562 Pain in left knee ==

== ENCOUNTER → 2024-05-08 | Outpatient (CLI) | payer OTHER | LOC: M RAD 06:29 | PROVIDERS: ATTEND Physician Assistant | DX: M25.361 Other instability, right knee (principal); M25.561 Pain in right knee; M94.261 Chondromalacia, right knee ==

== ENCOUNTER → 2024-07-22 | Outpatient (CLI) | payer OTHER | LOC: M RAD 08:07 | PROVIDERS: ATTEND Family Medicine | DX: I63.9 Cerebral infarction, unspecified (principal); R42 Dizziness and giddiness ==

== ENCOUNTER → 2024-09-25 | Outpatient (CLI) | payer OTHER ==
[~2024-09-25] MED LIST changes: +DIVA-41 PO; -DIVA500T94 PO
== END ==
LOC: M RAD 11:04
PROVIDERS: ATTEND Urology
DX: N20.0 Calculus of kidney (principal)

== ENCOUNTER → 2024-09-25 | Outpatient (CLI) | payer OTHER ==
[2024-09-25 13:17] LABS: PLATELET COUNT, AUTOMATED 293 10^3/uL (150-450)
[2024-09-25 13:46] LABS: ALT/SGPT 40.0 U/L (7.0-40); AST/SGOT 37.0 U/L (<34); CALCIUM LEVEL 9.6 MG/DL (8.5-10.1); CARBON DIOXIDE LEVEL 26.0 MMOL/L (20-31); CHLORIDE LEVEL 105.0 MMOL/L (98-107); CHOLESTEROL LEVEL 154.0 MG/DL (<200); CHOLESTEROL RISK RATIO 2.3 (<5); CREATININE FOR GFR 0.9 MG/DL (0.55-1.30); GLOMERULAR FILTRATION RATE 78.4 (>58); IRON (FE) 101.0 UG/DL (50-170); LDL CHOLESTEROL 59.5 MG/DL (<100); NON-HDL-C 87.3 MG/DL; PERCENT SATURATION 26.2 % (13.2-45.0); POTASSIUM SERUM 4.2 MMOL/L (3.5-5.1); SODIUM LEVEL 143.0 MMOL/L (136-145); TRIGLYCERIDES LEVEL 139.0 MG/DL (<150)
[2024-09-25 13:48] LABS: TOTAL 25(OH) VITAMIN D 32.3 NG/ML (20.0-100.0); VITAMIN B12 LEVEL 948.0 PG/ML (211-911)
[2024-09-25 13:55] LABS: ESTIMATED AVERAGE GLUCOSE 111.0 MG/DL (60-110)
== END ==
LOC: M RAD 10:54
PROVIDERS: ATTEND Family Medicine
DX: E03.9 Hypothyroidism, unspecified (principal); I10 Essential (primary) hypertension; R53.83 Other fatigue; R91.8 Other nonspecific abnormal finding of lung field; R00.1 Bradycardia, unspecified

== ENCOUNTER → 2024-10-06 | Outpatient (CLI) | payer OTHER | LOC: M WHC 15:57 | PROVIDERS: ATTEND Family Medicine | DX: Z12.31 Encounter for screening mammogram for malignant neoplasm of breast (principal); R92.313 Mammographic fatty tissue density, bilateral breasts ==

== ENCOUNTER → 2024-12-22 | Outpatient (CLI) | payer OTHER ==
[2024-12-22 12:35] LABS: CALCIUM LEVEL 9.5 MG/DL (8.5-10.1); CARBON DIOXIDE LEVEL 27.0 MMOL/L (20-31); CHLORIDE LEVEL 106.0 MMOL/L (98-107); CHOLESTEROL LEVEL 154.0 MG/DL (<200); CHOLESTEROL RISK RATIO 2.76 (<5); CREATININE FOR GFR 0.88 MG/DL (0.55-1.30); GLOMERULAR FILTRATION RATE 80.5 (>58); LDL CHOLESTEROL 77.8 MG/DL (<100); NON-HDL-C 98.4 MG/DL; POTASSIUM SERUM 5.1 MMOL/L (3.5-5.1); SODIUM LEVEL 143.0 MMOL/L (136-145); TRIGLYCERIDES LEVEL 103.0 MG/DL (<150)
== END ==
LOC: M PLALAB 08:40
PROVIDERS: ATTEND Student in an Organized Health Care Education/Training Program
DX: Z00.00 Encounter for general adult medical examination without abnormal findings (principal); I10 Essential (primary) hypertension

== ENCOUNTER → 2025-01-01 | Outpatient (CLI) | payer OTHER | LOC: M RAD 13:08 | PROVIDERS: ATTEND Nurse Practitioner | DX: I87.2 Venous insufficiency (chronic) (peripheral) (principal); R60.0 Localized edema ==

== ENCOUNTER → 2025-01-22 | Outpatient (CLI) | payer OTHER | LOC: M WHC 08:02 | PROVIDERS: ATTEND Student in an Organized Health Care Education/Training Program | DX: Z13.820 Encounter for screening for osteoporosis (principal) ==